=== PATIENT | female | born 1940 | race Caucasian/White ===

== ENCOUNTER 2018-12-26 19:05 | Emergency (ER) | payer MEDICARE, MEDICAID ==
[~2018-12-26] VITALS: Ht 157.5 cm; Wt 51.5 kg
[~2018-12-26 19:05] MED LIST: ALBU2.5V13 NEB; ALBU6.7H3 IH; CALC-2 PO; COL100C PO; DEC4T PO; FLUT1DIS4 PO; INHA1INH2; LEVO50TA8 PO; LORA10TA7 PO; LORA1TAB PO; METH500T PO; SPIIN INH
[2018-12-26 20:01] LABS: BASOPHILS # (AUTO) 0.1 X10'3 (0-0.2); BASOPHILS % (AUTO) 0.8 % (0-1); EOSINOPHILS # (AUTO) 0.1 X10'3 (0-0.9); EOSINOPHILS % (AUTO) 1.3 % (0-6); HEMOGLOBIN 13.2 g/dl (12.0-16.0); LYMPHOCYTES # (AUTO) 1.7 X10'3 (1.1-4.8); LYMPHOCYTES % (AUTO) 28.3 % (21-51); MEAN CORPUSCULAR HEMOGLOBIN 29.8 PG (27.0-31.0); MEAN CORPUSCULAR VOLUME 90.2 FL (78-98); MEAN PLATELET VOLUME 7.6 FL (7.4-10.4); MONOCYTES # (AUTO) 0.4 X10'3 (0-0.9); MONOCYTES % (AUTO) 5.7 % (2-12); NEUTROPHILS # (AUTO) 3.9 X10'3 (1.8-7.7); NEUTROPHILS % (AUTO) 63.9 % (42-75); PLATELET COUNT 251 X10'3 (140-440); RED BLOOD COUNT 4.43 X10'6 (4.20-5.60); RED CELL DISTRIBUTION WIDTH 15.9 % (11.5-14.5); WHITE BLOOD COUNT 6.2 X10'3 (4.5-11.0)
[2018-12-26 20:17] LABS: ALANINE AMINOTRANSFERASE 21 U/L (12-78); ALBUMIN 3.9 G/DL (3.4-5.0); ALBUMIN/GLOBULIN RATIO 1.1 (1.1-1.5); ALKALINE PHOSPHATASE 68 IU/L (46-116); ANION GAP 5 (8-16); ASPARTATE AMINO TRANSFERASE 12 U/L (10-37); BILIRUBIN,TOTAL 0.5 MG/DL (0.1-1.0); BLOOD UREA NITROGEN 14 MG/DL (7-18); BUN/CREATININE RATIO 22.2 (6.6-38.0); CHLORIDE 100 MMOL/L (99-107); CREATININE 0.63 MG/DL (0.40-0.90); GLUCOSE 93 MG/DL (70-104); POTASSIUM 3.4 MMOL/L (3.5-5.1); SODIUM 134 MMOL/L (135-145); TOTAL CARBON DIOXIDE 29.5 MMOL/L (24-32); TOTAL PROTEIN 7.6 G/DL (6.4-8.2); eGFR > 90 ML/MIN
[2018-12-26 20:21] LABS: PARTIAL THROMBOPLASTIN TIME 28 SECONDS (22-32)
[2018-12-26] MEDS ORDERED: LORazepam 1 MG tablet PO ONE (21:15)
[2018-12-26] MEDS ORDERED: dexamethasone 4mg tablet PO ONE (21:15)
[2018-12-26] MEDS ORDERED: ipratropium/albuterol 3ml nebule NEB ONE (21:35)
[2018-12-26] MEDS ORDERED: azithromycin 250mg tablet PO ONE (21:40)
[2018-12-26] MEDS ORDERED: AZIT-63 PO (21:42)
[2018-12-26] MEDS ORDERED: DEC4T PO (21:42)
[2018-12-26 22:22] VITALS: BP 108/59
== END 2018-12-26 23:01 | disposition home or self-care (01) ==
LOC: ER 19:06
DX: J44.1 Chronic obstructive pulmonary disease with (acute) exacerbation (principal); F41.9 Anxiety disorder, unspecified; G89.29 Other chronic pain; F17.210 Nicotine dependence, cigarettes, uncomplicated; Z90.49 Acquired absence of other specified parts of digestive tract; Z88.0 Allergy status to penicillin; Z88.1 Allergy status to other antibiotic agents; Z88.8 Allergy status to other drugs, medicaments and biological substances; Z79.899 Other long term (current) drug therapy
CPT/HCPCS: 36415; 71045; 80053; 84484; 85025; 85610; 85730; 93005; 94640; 94760; 99284; J8540

== ENCOUNTER 2019-04-09 12:30 | Inpatient (IN) | payer MEDICARE, MEDICAID ==
[~2019-04-09] VITALS: Ht 160 cm; Wt 52.4 kg
[2019-04-09 13:45] LABS: BASOPHILS % (AUTO) 0.5 % (0-1); EOSINOPHILS % (AUTO) 0.3 % (0-6); HEMATOCRIT 35.2 % (35.0-45.0); HEMOGLOBIN 11.8 g/dl (12.0-16.0); LYMPHOCYTES # (AUTO) 0.8 X10'3 (1.1-4.8); LYMPHOCYTES % (AUTO) 11.6 % (21-51); MEAN CORPUSCULAR HEMOGLOBIN 30.4 PG (27.0-31.0); MEAN CORPUSCULAR HGB CONC 33.4 g/dL (33.0-36.5); MEAN CORPUSCULAR VOLUME 90.8 FL (78-98); MEAN PLATELET VOLUME 8.6 FL (7.4-10.4); MONOCYTES # (AUTO) 0.7 X10'3 (0-0.9); MONOCYTES % (AUTO) 10.2 % (2-12); NEUTROPHILS # (AUTO) 5.6 X10'3 (1.8-7.7); NEUTROPHILS % (AUTO) 77.4 % (42-75); PLATELET COUNT 248 X10'3 (140-440); RED BLOOD COUNT 3.88 X10'6 (4.20-5.60); RED CELL DISTRIBUTION WIDTH 15.4 % (11.5-14.5); WHITE BLOOD COUNT 7.3 X10'3 (4.5-11.0)
[2019-04-09] MEDS ORDERED: ondansetron/PF 4mg/2ml inj IV ONE (13:55)
[2019-04-09] MEDS ORDERED: normal saline 1000ML IV soln IVB ONE (13:55)
[2019-04-09] MEDS ORDERED: morphine 2 MG/ML inj. syringe IV PRN (13:55)
[2019-04-09] MEDS ORDERED: metroNIDAZOLE-Flagyl 500mg/NS 100 ML IV ONE (13:55)
[2019-04-09] MEDS: levoFLOXACIN-Levaquin 750MG/D5 150 ML IV ONE ×2 (13:55→15:41)
[2019-04-09 14:01] LABS: ALANINE AMINOTRANSFERASE 73 U/L (12-78); ALBUMIN 2.6 G/DL (3.4-5.0); ALKALINE PHOSPHATASE 344 IU/L (46-116); ANION GAP 8 (8-16); BILIRUBIN,TOTAL 14.6 MG/DL (0.1-1.0); BLOOD UREA NITROGEN 13 MG/DL (7-18); CALCIUM 8.2 MG/DL (8.5-10.1); CHLORIDE 102 MMOL/L (99-107); LIPASE 225 U/L (73-393); SODIUM 136 MMOL/L (135-145); TOTAL CARBON DIOXIDE 25.7 MMOL/L (24-32)
[2019-04-09 14:07] LABS: ALBUMIN/GLOBULIN RATIO 0.7 (1.1-1.5); ASPARTATE AMINO TRANSFERASE 54 U/L (10-37); BUN/CREATININE RATIO 31.7 (6.6-38.0); CREATININE 0.41 MG/DL (0.40-0.90); GLUCOSE 119 MG/DL (70-104); TOTAL PROTEIN 6.3 G/DL (6.4-8.2); eGFR > 90 ML/MIN
[2019-04-09] MEDS ORDERED: iohexol 300mg/ml 100ml inj. ONE (15:35)
[2019-04-09] MEDS ORDERED: potassium CL 10mEq/100ml bag 100 ML IV PRN (15:50)
[2019-04-09] MEDS ORDERED: magnesium 4gm in 100ml NS 100 ML IV PRN (15:50)
[2019-04-09] MEDS ORDERED: acetaminophen 325mg tablet PO PRN ×2 (15:50)
[2019-04-09] MEDS ORDERED: potassium Cl 20 mEq SR tablet PO PRN ×2 (15:50)
[2019-04-09] MEDS ORDERED: ondansetron/PF 4mg/2ml inj IV PRN (15:50)
[2019-04-09] MEDS ORDERED: magnesium 2GM in 50ml NS 50 ML IV PRN (15:50)
[2019-04-09] MEDS ORDERED: normal saline 1000ml 1,000 ML IV ONE (15:50)
[2019-04-09] MEDS ORDERED: magnesium Cl slow-release 64mg tablet PO PRN (15:50)
[2019-04-09] MEDS ORDERED: magnesium hydroxide 30ml (MOM) UD suspension PO PRN (15:50)
--- NOTE | 2019-04-09 15:51 | NUR ---
PT TO CT
[2019-04-09] MEDS ORDERED: metroNIDAZOLE-Flagyl 500mg/NS 100 ML IV SCH (16:00)
[2019-04-09] MEDS ORDERED: FLUO15OI15 TOP (16:09)
[2019-04-09] MEDS ORDERED: BETA45OI2 TOP (16:18)
--- NOTE | 2019-04-09 16:34 | NUR ---
PT IS BACK FROM HER TEST AND THE LEVAQUIN HAS NOT BEEN GIVEN YET. ON ARRIVAL TO ROOM IT IS NOTICED THAT THE PHARMACIST HAS RECENTLY PUT LEVAQUIN ON HER ALLERGY LIST. TAKE LEVAQUINOUT OF THE ROOM AND DISPOSE IN BLUE SHARPS. NOTIFY DR GAMBLE WHO INSTRUCT TO NOTIFY THE HOSPITALIST AND LET THEM DECIDE WHAT ABX THEY WANT TO ADMINISTER.
--- NOTE | 2019-04-09 16:55 | NUR ---
PER DR CHAN, PUT IN ORDER FOR CEFTRAXIONE, DUE TO PT BEING ALLERGIC TO LEVAQUIN, HE SAID THAT SHE SHOULD BE OK, PT SHOULD TOLERATE WELL
[2019-04-09] MEDS: CefTRIAXone 2gm/D5W 50ml 50 ML IV SCH (17:20)
[2019-04-09 18:20] LABS: CLARITY,URINE CLEAR (Clear); COLOR,URINE YELLOW (Yellow); GLUCOSE, URINE NEGATIVE (Neg); KETONES,URINE NEGATIVE (Neg); LEUKOCYTE ESTERASE ,URINE NEGATIVE (Neg); NITRITES, URINE NEGATIVE (Neg); OCCULT BLOOD,URINE NEGATIVE (Neg); PH,URINE 5.5 (4.8-8.0); PROTEIN,URINE NEGATIVE (Neg); UROBILINOGEN,URINE 0.2 E.U/dL (0.2-1.0)
[2019-04-09 18:22] LABS: UA COLLECTION TYPE CLN CATCH MIDSTREAM
[2019-04-09] MEDS: potassium CL 10mEq/100ml bag 100 ML IV PRN ×3 (18:37→22:42)
[2019-04-09] MEDS ORDERED: LORazepam 1 MG tablet PO PRN (19:50)
[2019-04-09] MEDS ORDERED: loratadine 10mg tablet PO PRN (19:50)
[2019-04-09] MEDS ORDERED: docusate sod 100mg capsule PO PRN (19:50)
[2019-04-09 20:00] VITALS: BP 125/52
[2019-04-09] MEDS ORDERED: heparin, porcine 5000 units/ml vial SQ SCH (20:00)
[2019-04-09] MEDS ORDERED: ipratropium/albuterol 3ml nebule NEB PRN (20:20)
[2019-04-09] MEDS ORDERED: phytonadione inj. 5 MG in normal saline 100ml IV soln 99.5 ML IV ONE (20:20)
[2019-04-09] MEDS: LORazepam 1 MG tablet PO SCH (20:41)
[2019-04-09] MEDS ORDERED: ipratropium 0.5 MG/2.5ML nebule IH SCH (21:00)
[2019-04-09] MEDS: ipratropium/albuterol 3ml nebule NEB SCH (21:37)
[2019-04-10] VITALS (13 sets, daily range): BP systolic 113–155; BP diastolic 46–91
[2019-04-10] MEDS ORDERED: metroNIDAZOLE-Flagyl 500mg/NS 100 ML IV SCH
[2019-04-10] MEDS: metroNIDAZOLE-Flagyl 500mg/NS 100 ML IV SCH ×4 (00:31→23:17)
[2019-04-10] MEDS: potassium CL 10mEq/100ml bag 100 ML IV PRN ×5 (00:32→05:51)
[2019-04-10 05:24] LABS: BASOPHILS # (AUTO) 0.1 X10'3 (0-0.2); BASOPHILS % (AUTO) 0.8 % (0-1); EOSINOPHILS % (AUTO) 0.4 % (0-6); HEMATOCRIT 36.1 % (35.0-45.0); HEMOGLOBIN 12.1 g/dl (12.0-16.0); LYMPHOCYTES # (AUTO) 1.1 X10'3 (1.1-4.8); LYMPHOCYTES % (AUTO) 16.9 % (21-51); MEAN CORPUSCULAR HEMOGLOBIN 30.3 PG (27.0-31.0); MEAN CORPUSCULAR HGB CONC 33.5 g/dL (33.0-36.5); MEAN CORPUSCULAR VOLUME 90.5 FL (78-98); MEAN PLATELET VOLUME 8.9 FL (7.4-10.4); MONOCYTES # (AUTO) 0.6 X10'3 (0-0.9); MONOCYTES % (AUTO) 10.1 % (2-12); NEUTROPHILS # (AUTO) 4.6 X10'3 (1.8-7.7); NEUTROPHILS % (AUTO) 71.8 % (42-75); PLATELET COUNT 259 X10'3 (140-440); RED BLOOD COUNT 3.99 X10'6 (4.20-5.60); RED CELL DISTRIBUTION WIDTH 15.4 % (11.5-14.5); WHITE BLOOD COUNT 6.4 X10'3 (4.5-11.0)
[2019-04-10 05:30] LABS: PARTIAL THROMBOPLASTIN TIME 28 SECONDS (22-32)
[2019-04-10 05:50] LABS: ALANINE AMINOTRANSFERASE 68 U/L (12-78); ALBUMIN 2.3 G/DL (3.4-5.0); ALBUMIN/GLOBULIN RATIO 0.6 (1.1-1.5); ALKALINE PHOSPHATASE 320 IU/L (46-116); ANION GAP 11 (8-16); ASPARTATE AMINO TRANSFERASE 52 U/L (10-37); BILIRUBIN,TOTAL 15.5 MG/DL (0.1-1.0); BLOOD UREA NITROGEN 8 MG/DL (7-18); BUN/CREATININE RATIO 21.6 (6.6-38.0); CALCIUM 8.1 MG/DL (8.5-10.1); CHLORIDE 103 MMOL/L (99-107); CREATININE 0.37 MG/DL (0.40-0.90); GLUCOSE 96 MG/DL (70-104); LIPASE 253 U/L (73-393); MAGNESIUM 1.8 MG/DL (1.5-2.4); POTASSIUM 4.1 MMOL/L (3.5-5.1); SODIUM 138 MMOL/L (135-145); TOTAL CARBON DIOXIDE 23.7 MMOL/L (24-32); TOTAL PROTEIN 5.9 G/DL (6.4-8.2); eGFR > 90 ML/MIN
--- NOTE | 2019-04-10 06:25 | NUR ---
Problems reprioritized. Patient report given, questions answered & plan of care reviewed with JOSHUA Mancilla.
--- NOTE | 2019-04-10 06:56 | NUR ---
Patient in room [facility]. I have received report from JOSHUA Lazar and had the opportunity to ask questions and assume patient care.
[2019-04-10] MEDS: ipratropium/albuterol 3ml nebule NEB SCH ×3 (07:36→20:53)
[2019-04-10] MEDS: budesonide 0.5mg/2ml UD nebule IH SCH ×2 (07:36→20:53)
[2019-04-10] MEDS ORDERED: non-formulary drug (Tiotropium Bromide (SPIRIVA inhaler) 1 CAP) INH SCH (08:00)
[2019-04-10] MEDS ORDERED: levoFLOXACIN-Levaquin 500mg/D5 100 ML IV SCH (08:00)
[2019-04-10] MEDS ORDERED: CefTRIAXone 2gm/D5W 50ml 50 ML IV SCH (08:00)
[2019-04-10] MEDS: K and/or MAG REPLACEMENT MC SCH (08:00)
[2019-04-10] MEDS ORDERED: non-formulary drug (Levothyroxine Sodium 50 MCG) PO SCH (08:00)
[2019-04-10] MEDS: LORazepam 1 MG tablet PO SCH ×2 (08:52→19:27)
[2019-04-10] MEDS: levoTHYROXINE 25mcg tablet PO SCH (08:53)
[2019-04-10] MEDS: CefTRIAXone 2gm/D5W 50ml 50 ML IV SCH (08:54)
[2019-04-10] MEDS: normal saline 1000ml 1,000 ML IV SCH ×2 (09:42→19:25)
[2019-04-10] MEDS ORDERED: fentaNYL/PF 50MCG/1 ML 2ML syringe ONE (15:40)
[2019-04-10] MEDS ORDERED: diphenhydrAMINE 50 mg/ml inj ONE (15:40)
[2019-04-10] MEDS ORDERED: MIDAZolam 5mg/5ml vial ONE (15:40)
[2019-04-10] MEDS ORDERED: iohexol 300 MG/1 ML 50ml polymer ONE (15:41)
[2019-04-10] MEDS ORDERED: glucagon, human recombinant 1mg kit ONE (15:41)
[2019-04-10] MEDS ORDERED: LIDOcaine Viscous 15ml cup ONE (15:41)
--- NOTE | 2019-04-10 15:43 | NUR ---
Patient taken down to GI lab for ERCP via W/C.
--- NOTE | 2019-04-10 16:25 | NUR ---
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 Hx cirrhosis and currently AOx3. Pending ERCP. Pt hs no significant wt loss hx, no edema/wounds, normal strength and PO pending clear liquid diet. At this time pt does not meet minimum malnutrition criteria. Will continue to monitor. Addendum: 04/10/19 at [address] Amended: Links added.
--- NOTE | 2019-04-10 18:40 | NUR ---
Problems reprioritized. Patient report given, questions answered & plan of care reviewed with JOSHUA VILLANUEVA.
--- NOTE | 2019-04-10 18:50 | NUR ---
PT BACK TO UNIT, PLACED IN BED IN NO APPARENT DISTRESS. WILL CONTINUE TO MONITOR
[2019-04-10] MEDS: lactobacillus rhamnosus 10,000 MMU CELLS/CAPSULE PO SCH (19:27)
[2019-04-10] MEDS: morphine 4 MG/ML inj SYRINge IV PRN (20:23)
[2019-04-11] VITALS: BP 115/50
[2019-04-11] MEDS: morphine 2 MG/ML inj. syringe IV PRN ×3 (02:44→13:01)
[2019-04-11] MEDS: normal saline 1000ml 1,000 ML IV SCH ×2 (05:25→11:50)
[2019-04-11] MEDS: levoTHYROXINE 25mcg tablet PO SCH (06:03)
--- NOTE | 2019-04-11 06:20 | NUR ---
Patient in room [facility]. I have received report from Matthew LEWIS and had the opportunity to ask questions and assume patient care. Patient receiving morphine, will assess if effective.
--- NOTE | 2019-04-11 06:29 | NUR ---
Problems reprioritized. Patient report given, questions answered & plan of care reviewed with JOSHUA Romo.
[2019-04-11 06:31] LABS: BASOPHILS % (AUTO) 0.7 % (0-1); EOSINOPHILS % (AUTO) 0.4 % (0-6); HEMATOCRIT 31.2 % (35.0-45.0); HEMOGLOBIN 10.4 g/dl (12.0-16.0); LYMPHOCYTES # (AUTO) 0.7 X10'3 (1.1-4.8); LYMPHOCYTES % (AUTO) 14.3 % (21-51); MEAN CORPUSCULAR HEMOGLOBIN 30.5 PG (27.0-31.0); MEAN CORPUSCULAR HGB CONC 33.5 g/dL (33.0-36.5); MEAN CORPUSCULAR VOLUME 90.8 FL (78-98); MEAN PLATELET VOLUME 8.9 FL (7.4-10.4); MONOCYTES # (AUTO) 0.4 X10'3 (0-0.9); MONOCYTES % (AUTO) 8.2 % (2-12); NEUTROPHILS % (AUTO) 76.4 % (42-75); PLATELET COUNT 232 X10'3 (140-440); RED BLOOD COUNT 3.43 X10'6 (4.20-5.60); RED CELL DISTRIBUTION WIDTH 15.1 % (11.5-14.5); WHITE BLOOD COUNT 5.2 X10'3 (4.5-11.0)
[2019-04-11 06:42] LABS: PARTIAL THROMBOPLASTIN TIME 29 SECONDS (22-32)
[2019-04-11 06:52] LABS: ALANINE AMINOTRANSFERASE 57 U/L (12-78); ALKALINE PHOSPHATASE 262 IU/L (46-116); ANION GAP 7 (8-16); ASPARTATE AMINO TRANSFERASE 41 U/L (10-37); BILIRUBIN,TOTAL 12.3 MG/DL (0.1-1.0); BLOOD UREA NITROGEN 7 MG/DL (7-18); BUN/CREATININE RATIO 19.4 (6.6-38.0); CALCIUM 7.9 MG/DL (8.5-10.1); CHLORIDE 103 MMOL/L (99-107); CREATININE 0.36 MG/DL (0.40-0.90); GLUCOSE 88 MG/DL (70-104); LIPASE 168 U/L (73-393); MAGNESIUM 1.7 MG/DL (1.5-2.4); SODIUM 137 MMOL/L (135-145); TOTAL CARBON DIOXIDE 26.7 MMOL/L (24-32); eGFR > 90 ML/MIN
[2019-04-11 07:00] VITALS: BP 120/41
[2019-04-11 07:03] LABS: ALBUMIN/GLOBULIN RATIO 0.6 (1.1-1.5); TOTAL PROTEIN 5.3 G/DL (6.4-8.2)
[2019-04-11 07:06] LABS: POTASSIUM 2.9 MMOL/L (3.5-5.1)
[2019-04-11] MEDS: K and/or MAG REPLACEMENT MC SCH (08:00)
[2019-04-11] MEDS: lactobacillus rhamnosus 10,000 MMU CELLS/CAPSULE PO SCH ×2 (08:04→19:38)
[2019-04-11] MEDS: LORazepam 1 MG tablet PO SCH ×2 (08:05→19:38)
[2019-04-11] MEDS: ipratropium/albuterol 3ml nebule NEB SCH ×3 (08:05→20:49)
[2019-04-11] MEDS: budesonide 0.5mg/2ml UD nebule IH SCH ×2 (08:05→20:49)
[2019-04-11] MEDS: metroNIDAZOLE-Flagyl 500mg/NS 100 ML IV SCH (08:06)
[2019-04-11] MEDS ORDERED: magnesium 2GM in 50ml NS 50 ML IV ONE (08:25)
--- NOTE | 2019-04-11 08:28 | NUR ---
son, Donnell called and asked for update from yesterday's ERCP. Requested that he call back after 10 am due to report not up and must discuss with MD giving results to family. Will continue to monitor.
[2019-04-11] MEDS ORDERED: POTASSIUM BICARB 20meq eff tab 20 MEQ TABLET.EFF PO PRN (08:33)
--- NOTE | 2019-04-11 09:23 | NUR ---
Merry, sister called, wanting information about patient. Educated on imprortance of physician providing results. Continued to request information.
[2019-04-11 11:00] VITALS: BP 114/45
[2019-04-11] MEDS: POTASSIUM BICARB 20meq eff tab 20 MEQ TABLET.EFF PO PRN ×2 (11:54→17:21)
--- NOTE | 2019-04-11 12:49 | NUR ---
Tesha at [facility] will send pt's ERCP and CT of Abdomen reports along w/ pt's facesheet to Dr. Isrrael Salinas (GI), per Dr. Hagen's request.
--- NOTE | 2019-04-11 13:10 | NUR ---
Patient's son, Donnell, will be family contact [phone]. Dr. Hagen provided number to Donnell. States he will call to notify.
[2019-04-11] MEDS: metroNIDAZOLE 500mg tablet PO SCH ×2 (17:20→23:56)
--- NOTE | 2019-04-11 17:41 | NUR ---
Received call from sister Merry who states that the son, Donnell stated in a text that the patient's doctor stated something about a gallbladder which the patient had removed. Stated I will make a note.
--- NOTE | 2019-04-11 18:49 | NUR ---
Patient in room [facility]. I have received report from Clarissa LEWIS and had the opportunity to ask questions and assume patient care. Patient is resting and shows no sign of distress.
--- NOTE | 2019-04-11 18:53 | NUR ---
Problems reprioritized. Patient report given, questions answered & plan of care reviewed with Prudence RN.
[2019-04-11 19:00] VITALS: BP 134/62
[2019-04-11] MEDS: triamcinolone acetonide 0.5% cream 15gm TP SCH (19:39)
[2019-04-11] MEDS: morphine 4 MG/ML inj SYRINge IV PRN (23:57)
[2019-04-12] VITALS: BP 122/66
[2019-04-12] MEDS: normal saline 1000ml 1,000 ML IV SCH ×3 (00:04→19:49)
--- NOTE | 2019-04-12 06:44 | NUR ---
Patient in room [facility] 348. I have received report from Soo LEWIS and had the opportunity to ask questions and assume patient care.
[2019-04-12 06:45] LABS: PARTIAL THROMBOPLASTIN TIME 29 SECONDS (22-32)
[2019-04-12 06:46] LABS: BASOPHILS % (AUTO) 0.4 % (0-1); EOSINOPHILS # (AUTO) 0.1 X10'3 (0-0.9); EOSINOPHILS % (AUTO) 1.1 % (0-6); HEMATOCRIT 29.4 % (35.0-45.0); HEMOGLOBIN 10.1 g/dl (12.0-16.0); LYMPHOCYTES # (AUTO) 0.7 X10'3 (1.1-4.8); LYMPHOCYTES % (AUTO) 14.7 % (21-51); MEAN CORPUSCULAR HEMOGLOBIN 30.9 PG (27.0-31.0); MEAN CORPUSCULAR HGB CONC 34.2 g/dL (33.0-36.5); MEAN CORPUSCULAR VOLUME 90.2 FL (78-98); MEAN PLATELET VOLUME 8.8 FL (7.4-10.4); MONOCYTES # (AUTO) 0.4 X10'3 (0-0.9); MONOCYTES % (AUTO) 8.5 % (2-12); NEUTROPHILS # (AUTO) 3.7 X10'3 (1.8-7.7); NEUTROPHILS % (AUTO) 75.3 % (42-75); PLATELET COUNT 246 X10'3 (140-440); RED BLOOD COUNT 3.26 X10'6 (4.20-5.60); RED CELL DISTRIBUTION WIDTH 15.1 % (11.5-14.5)
[2019-04-12 07:00] VITALS: BP 100/43
[2019-04-12 07:26] LABS: ALANINE AMINOTRANSFERASE 44 U/L (12-78); ALBUMIN 1.9 G/DL (3.4-5.0); ALKALINE PHOSPHATASE 220 IU/L (46-116); ANION GAP 6 (8-16); ASPARTATE AMINO TRANSFERASE 25 U/L (10-37); BILIRUBIN,TOTAL 6.4 MG/DL (0.1-1.0); BLOOD UREA NITROGEN 5 MG/DL (7-18); BUN/CREATININE RATIO 8.3 (6.6-38.0); CHLORIDE 101 MMOL/L (99-107); GLUCOSE 164 MG/DL (70-104); LIPASE 92 U/L (73-393); MAGNESIUM 2.1 MG/DL (1.5-2.4); POTASSIUM 3.5 MMOL/L (3.5-5.1); SODIUM 133 MMOL/L (135-145); TOTAL CARBON DIOXIDE 25.9 MMOL/L (24-32); eGFR > 90 ML/MIN
[2019-04-12 07:32] LABS: CALCIUM 7.5 MG/DL (8.5-10.1)
[2019-04-12 07:34] LABS: ALBUMIN/GLOBULIN RATIO 0.6 (1.1-1.5); TOTAL PROTEIN 5.2 G/DL (6.4-8.2)
[2019-04-12] MEDS: levoTHYROXINE 25mcg tablet PO SCH (07:57)
[2019-04-12] MEDS: lactobacillus rhamnosus 10,000 MMU CELLS/CAPSULE PO SCH ×2 (07:57→19:47)
[2019-04-12] MEDS: metroNIDAZOLE 500mg tablet PO SCH ×2 (07:57→15:34)
[2019-04-12] MEDS: LORazepam 1 MG tablet PO SCH ×2 (07:58→19:48)
[2019-04-12] MEDS: triamcinolone acetonide 0.5% cream 15gm TP SCH ×2 (07:58→19:47)
[2019-04-12] MEDS: K and/or MAG REPLACEMENT MC SCH (08:00)
[2019-04-12] MEDS: ipratropium/albuterol 3ml nebule NEB SCH ×3 (09:32→21:16)
[2019-04-12] MEDS: budesonide 0.5mg/2ml UD nebule IH SCH ×2 (09:32→21:16)
[2019-04-12] MEDS: morphine 2 MG/ML inj. syringe IV PRN ×2 (10:11→14:19)
[2019-04-12 12:16] VITALS: BP 100/55
--- NOTE | 2019-04-12 18:29 | NUR ---
Problems reprioritized. Patient report given, questions answered & plan of care reviewed with Prudence RN.
--- NOTE | 2019-04-12 18:47 | NUR ---
Patient in room [facility] 348. I have received report from Becca LEWIS and had the opportunity to ask questions and assume patient care. Patient is hhaving dinner and has cough.
[2019-04-12 19:00] VITALS: BP 115/55
[2019-04-13] VITALS: BP 118/63
[2019-04-13] MEDS: metroNIDAZOLE 500mg tablet PO SCH ×4 (00:30→23:34)
[2019-04-13] MEDS: normal saline 1000ml 1,000 ML IV SCH ×2 (04:57→17:25)
--- NOTE | 2019-04-13 06:19 | NUR ---
Patient in room [facility] 348. I have received report from Soo LEWIS and had the opportunity to ask questions and assume patient care.
[2019-04-13 06:20] LABS: BASOPHILS % (AUTO) 0.6 % (0-1); EOSINOPHILS # (AUTO) 0.1 X10'3 (0-0.9); EOSINOPHILS % (AUTO) 1.9 % (0-6); HEMATOCRIT 29.1 % (35.0-45.0); HEMOGLOBIN 9.9 g/dl (12.0-16.0); LYMPHOCYTES % (AUTO) 20.9 % (21-51); MEAN CORPUSCULAR HEMOGLOBIN 30.8 PG (27.0-31.0); MEAN CORPUSCULAR VOLUME 90.5 FL (78-98); MEAN PLATELET VOLUME 8.5 FL (7.4-10.4); MONOCYTES # (AUTO) 0.5 X10'3 (0-0.9); MONOCYTES % (AUTO) 10.5 % (2-12); NEUTROPHILS # (AUTO) 3.1 X10'3 (1.8-7.7); NEUTROPHILS % (AUTO) 66.1 % (42-75); PLATELET COUNT 259 X10'3 (140-440); RED BLOOD COUNT 3.22 X10'6 (4.20-5.60); RED CELL DISTRIBUTION WIDTH 14.8 % (11.5-14.5); WHITE BLOOD COUNT 4.6 X10'3 (4.5-11.0)
--- NOTE | 2019-04-13 06:24 | NUR ---
Problems reprioritized. Patient report given, questions answered & plan of care reviewed with Kelsi LEWIS and Becca LEWIS. Patient is feeling much better. She rested well last night.
[2019-04-13 06:55] LABS: ALANINE AMINOTRANSFERASE 41 U/L (12-78); ALKALINE PHOSPHATASE 194 IU/L (46-116); ANION GAP 7 (8-16); ASPARTATE AMINO TRANSFERASE 28 U/L (10-37); BILIRUBIN,TOTAL 4.5 MG/DL (0.1-1.0); BLOOD UREA NITROGEN 4 MG/DL (7-18); CALCIUM 7.9 MG/DL (8.5-10.1); CHLORIDE 104 MMOL/L (99-107); GLUCOSE 89 MG/DL (70-104); MAGNESIUM 2.1 MG/DL (1.5-2.4); POTASSIUM 3.7 MMOL/L (3.5-5.1); SODIUM 139 MMOL/L (135-145); TOTAL CARBON DIOXIDE 28.2 MMOL/L (24-32); eGFR > 90 ML/MIN
[2019-04-13 07:00] VITALS: BP 103/43
[2019-04-13] MEDS: levoTHYROXINE 25mcg tablet PO SCH (07:09)
[2019-04-13] MEDS: LORazepam 1 MG tablet PO SCH ×2 (07:09→19:01)
[2019-04-13] MEDS: lactobacillus rhamnosus 10,000 MMU CELLS/CAPSULE PO SCH ×2 (07:09→19:40)
[2019-04-13] MEDS: triamcinolone acetonide 0.5% cream 15gm TP SCH ×2 (07:10→19:41)
[2019-04-13 07:21] LABS: ALBUMIN/GLOBULIN RATIO 0.6 (1.1-1.5); TOTAL PROTEIN 5.3 G/DL (6.4-8.2)
[2019-04-13] MEDS: K and/or MAG REPLACEMENT MC SCH (08:00)
[2019-04-13] MEDS: budesonide 0.5mg/2ml UD nebule IH SCH ×2 (09:40→20:45)
[2019-04-13] MEDS: ipratropium/albuterol 3ml nebule NEB SCH ×3 (09:40→20:45)
[2019-04-13 11:00] VITALS: BP 123/46
[2019-04-13] MEDS: mag hydrox/Alum hydrox/simeth 30ml oral suspension PO PRN ×2 (13:29→23:35)
--- NOTE | 2019-04-13 15:02 | NUR ---
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 Advanced to heart healthy diet PO 75-100% meals post-op meeting needs. LBM 04/09; pt has colace PRN HS and agrees to change to BID for additional bowel care post-op. Will continue to monitor. Rec: 1. continue heart healthy diet 2. routine bowel care 3. wt per rx Addendum: 04/13/19 at [address] Amended: Links added. 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 PO 75-100% heart healthy meals meeting needs. agrees to change colace to BID fro PRN given LBM 04/09. Will continue to monitor. Rec: 1. continue heart healthy diet 2. routine bowel care 3. wt per rx
--- NOTE | 2019-04-13 18:27 | NUR ---
Problems reprioritized. Patient report given, questions answered & plan of care reviewed with Iris LEWIS.
--- NOTE | 2019-04-13 18:30 | NUR ---
Received report from JOSHUA Wheeler and assumed plan of care.
--- NOTE | 2019-04-13 18:30 | NUR ---
Patient in room [facility]. I have received report from MITCHEL and had the opportunity to ask questions and assume patient care. ASSUMED CARE OF PT WITH RN STUDENT EDIL Elizabeth
[2019-04-13 19:00] VITALS: BP 153/64
[2019-04-13] MEDS ORDERED: ibuprofen tablet 400 MG TABLET PO PRN (19:10)
[2019-04-13] MEDS: docusate sod 100mg capsule PO SCH (19:40)
[2019-04-14] VITALS: BP 106/50
--- NOTE | 2019-04-14 00:20 | NUR ---
Patient awoke choking on cough secretions; suction is on continuos.
--- NOTE | 2019-04-14 01:54 | NUR ---
Pt continues to cough up moderate amounts of phlegm. Encouraged fluids and DB&C. Patient is using suction as needed.
--- NOTE | 2019-04-14 04:57 | NUR ---
Student documentation: I have reviewed and agree with all interventions, assessments performed and documented by EDIL. Student Medication Administration: For this medication-pass time frame, all medication were reviewed, dispensed, administered and documented per hospital policy by EDIL.
[2019-04-14 06:01] LABS: BASOPHILS % (AUTO) 0.7 % (0-1); EOSINOPHILS # (AUTO) 0.1 X10'3 (0-0.9); EOSINOPHILS % (AUTO) 3.1 % (0-6); HEMATOCRIT 30.6 % (35.0-45.0); HEMOGLOBIN 10.1 g/dl (12.0-16.0); LYMPHOCYTES # (AUTO) 0.9 X10'3 (1.1-4.8); LYMPHOCYTES % (AUTO) 20.1 % (21-51); MEAN CORPUSCULAR HEMOGLOBIN 30.3 PG (27.0-31.0); MEAN CORPUSCULAR HGB CONC 33.1 g/dL (33.0-36.5); MEAN CORPUSCULAR VOLUME 91.8 FL (78-98); MEAN PLATELET VOLUME 8.3 FL (7.4-10.4); MONOCYTES # (AUTO) 0.5 X10'3 (0-0.9); MONOCYTES % (AUTO) 10.9 % (2-12); NEUTROPHILS # (AUTO) 2.8 X10'3 (1.8-7.7); NEUTROPHILS % (AUTO) 65.2 % (42-75); PLATELET COUNT 266 X10'3 (140-440); RED BLOOD COUNT 3.34 X10'6 (4.20-5.60); RED CELL DISTRIBUTION WIDTH 14.9 % (11.5-14.5); WHITE BLOOD COUNT 4.4 X10'3 (4.5-11.0)
[2019-04-14 06:19] LABS: ALANINE AMINOTRANSFERASE 49 U/L (12-78); ALBUMIN 2.1 G/DL (3.4-5.0); ALKALINE PHOSPHATASE 213 IU/L (46-116); ANION GAP 5 (8-16); ASPARTATE AMINO TRANSFERASE 42 U/L (10-37); BILIRUBIN,TOTAL 3.8 MG/DL (0.1-1.0); BLOOD UREA NITROGEN 3 MG/DL (7-18); BUN/CREATININE RATIO 5.3 (6.6-38.0); CHLORIDE 105 MMOL/L (99-107); CREATININE 0.57 MG/DL (0.40-0.90); GLUCOSE 104 MG/DL (70-104); MAGNESIUM 2.1 MG/DL (1.5-2.4); POTASSIUM 3.7 MMOL/L (3.5-5.1); SODIUM 139 MMOL/L (135-145); TOTAL CARBON DIOXIDE 28.7 MMOL/L (24-32); eGFR > 90 ML/MIN
[2019-04-14 06:22] LABS: ALBUMIN/GLOBULIN RATIO 0.6 (1.1-1.5); TOTAL PROTEIN 5.6 G/DL (6.4-8.2)
[2019-04-14 06:30] VITALS: BP 115/50
--- NOTE | 2019-04-14 06:30 | NUR ---
Patient in room [facility]. I have received report from JOSHUA Agudelo and had the opportunity to ask questions and assume patient care.
--- NOTE | 2019-04-14 06:44 | NUR ---
Problems reprioritized. Patient report given, questions answered & plan of care reviewed with PETER.
[2019-04-14] MEDS: K and/or MAG REPLACEMENT MC SCH (06:58)
[2019-04-14] MEDS ORDERED: pantoprazole 40mg Tablet.DR PO SCH (07:30)
[2019-04-14] MEDS: levoTHYROXINE 25mcg tablet PO SCH (07:49)
[2019-04-14] MEDS: metroNIDAZOLE 500mg tablet PO SCH ×2 (07:49→16:28)
[2019-04-14] MEDS: LORazepam 1 MG tablet PO SCH ×2 (07:49→16:28)
[2019-04-14] MEDS: docusate sod 100mg capsule PO SCH (07:50)
[2019-04-14] MEDS: triamcinolone acetonide 0.5% cream 15gm TP SCH (07:50)
[2019-04-14] MEDS: lactobacillus rhamnosus 10,000 MMU CELLS/CAPSULE PO SCH (07:50)
[2019-04-14] MEDS: ipratropium/albuterol 3ml nebule NEB SCH ×2 (09:16→16:05)
[2019-04-14] MEDS: budesonide 0.5mg/2ml UD nebule IH SCH (09:16)
[2019-04-14] MEDS ORDERED: LACT1CAP26 PO (10:01)
[2019-04-14] MEDS ORDERED: PANT40TA4 PO (10:01)
[2019-04-14] MEDS ORDERED: METR500T PO (10:01)
[2019-04-14] MEDS ORDERED: CEFD300C3 PO (10:01)
[2019-04-14 11:00] VITALS: BP 139/57
[2019-04-14] MEDS ORDERED: bisacodyl 10mg suppository rectal RC STA (13:22)
--- NOTE | 2019-04-14 17:15 | NUR ---
DC inst provided to pt. IV DC'd, tip intact. All belongings sent w/pt. WC to front lobby.
== END 2019-04-14 17:27 | disposition home health service (06) | DRG 374 ==
LOC: ER 12:31 → SUR 3N 19:40
PROVIDERS: ADMIT Hospitalist; ATTEND Hospitalist
PROC: BW211ZZ Computerized Tomography (CT Scan) of Abdomen and Pelvis using Low Osmolar Contrast (ICD-10-PCS; principal; 2019-04-09)
PROC: 0F798DZ Dilation of Common Bile Duct with Intraluminal Device, Via Natural or Artificial Opening Endoscopic (ICD-10-PCS; 2019-04-10)
PROC: 0F7D8DZ Dilation of Pancreatic Duct with Intraluminal Device, Via Natural or Artificial Opening Endoscopic (ICD-10-PCS; 2019-04-10)
PROC: BF111ZZ Fluoroscopy of Biliary and Pancreatic Ducts using Low Osmolar Contrast (ICD-10-PCS; 2019-04-10)
PROC: 0FD98ZX Extraction of Common Bile Duct, Via Natural or Artificial Opening Endoscopic, Diagnostic (ICD-10-PCS; 2019-04-10)
DX: D37.8 Neoplasm of uncertain behavior of other specified digestive organs (principal); K83.1 Obstruction of bile duct; E43 Unspecified severe protein-calorie malnutrition; E72.20 Disorder of urea cycle metabolism, unspecified; D68.9 Coagulation defect, unspecified; K83.09 Other cholangitis; K83.8 Other specified diseases of biliary tract; E03.9 Hypothyroidism, unspecified; J44.9 Chronic obstructive pulmonary disease, unspecified; F41.9 Anxiety disorder, unspecified; G89.29 Other chronic pain; M54.9 Dorsalgia, unspecified; K59.00 Constipation, unspecified; E87.6 Hypokalemia; Z88.0 Allergy status to penicillin; Z88.1 Allergy status to other antibiotic agents; Z88.8 Allergy status to other drugs, medicaments and biological substances; Z88.7 Allergy status to serum and vaccine; Z79.890 Hormone replacement therapy; Z79.899 Other long term (current) drug therapy; Z87.440 Personal history of urinary (tract) infections; Z87.891 Personal history of nicotine dependence; Z90.49 Acquired absence of other specified parts of digestive tract
CPT/HCPCS: 36415; 43261; 43262; 43274; 71045; 74177; 76700; 76937; 80053; 81003; 82140; 83605; 83690; 83735; 84132; 84443; 85025; 85610; 85730; 86301; 87040; 87070; 87081; 88108; 88305; 94640; 94760; 96365; 96367; 96375; 99152; 99153; 99285; A4620; C1769; C2617; G0378; J0696; J1200; J1610; J1644; J1956; J2250; J2270; J2405; J3010; J3430; J3475; J3480; J3490; J7030; J7040; J7626; Q9967

== ENCOUNTER 2019-05-29 08:31 | Day surgery (SDC) | payer MEDICARE, MEDICAID ==
[~2019-05-29 08:31] MED LIST changes: +BETA45OI2 TOP; -CALC-2 PO; -DEC4T PO; -INHA1INH2; +LACT1CAP26 PO; -METH500T PO; +METR500T PO; +PANT40TA4 PO
[2019-05-29 08:55] VITALS: BP 105/57
[2019-05-29] MEDS ORDERED: fentaNYL/PF 50MCG/1 ML 2ML syringe IV PRN (10:20)
[2019-05-29] MEDS ORDERED: LIDOcaine 1% (10mg/ml) 2ml vial SQ ONE (10:20)
[2019-05-29] MEDS ORDERED: heparin sodium, porcine/PF 100unit/ml 5ML syringe ONE (10:20)
[2019-05-29] MEDS ORDERED: midazolam 2 mg/2 ml injection IV PRN (10:20)
[2019-05-29] MEDS ORDERED: heparin sodium, porcine/PF 100unit/ml 5ML syringe ICATH ONE (10:20)
[2019-05-29] MEDS ORDERED: midazolam 2 mg/2 ml injection ONE (10:20)
[2019-05-29] MEDS ORDERED: LIDOcaine 1%/PF 5ML 10 MG/ML VIAL ONE (10:20)
[2019-05-29] MEDS ORDERED: fentaNYL/PF 50MCG/1 ML 2ML syringe ONE (10:21)
[2019-05-29] MEDS ORDERED: LORazepam 1 MG tablet PO ONE (11:00)
[2019-05-29 11:04] VITALS: BP 103/58
[2019-05-29 11:30] VITALS: BP 103/72
[2019-05-29 11:58] VITALS: BP 117/48
[2019-05-29 12:03] VITALS: BP 118/52
[2019-05-29 12:08] VITALS: BP 116/48
== END 2019-05-29 12:20 | disposition home or self-care (01) ==
LOC: SSTAY O 08:31
PROVIDERS: ATTEND Radiology Vascular & Interventional Radiology
DX: C25.9 Malignant neoplasm of pancreas, unspecified (principal); J44.9 Chronic obstructive pulmonary disease, unspecified; F41.9 Anxiety disorder, unspecified; K21.9 Gastro-esophageal reflux disease without esophagitis; Z87.01 Personal history of pneumonia (recurrent); Z87.440 Personal history of urinary (tract) infections; Z90.49 Acquired absence of other specified parts of digestive tract; Z98.890 Other specified postprocedural states; Z87.891 Personal history of nicotine dependence; Z88.0 Allergy status to penicillin; Z88.1 Allergy status to other antibiotic agents; Z88.8 Allergy status to other drugs, medicaments and biological substances; Z88.7 Allergy status to serum and vaccine; Z79.899 Other long term (current) drug therapy; Z80.3 Family history of malignant neoplasm of breast
CPT/HCPCS: 36561; 76937; 77001; 99152; 99153; C1769; C1788; C1894; J1642; J2250; J3010

== ENCOUNTER 2019-06-17 09:57 | Day surgery (SDC) | payer MEDICARE, MEDICAID ==
[~2019-06-17 09:57] MED LIST changes: -LACT1CAP26 PO; -METR500T PO
== END 2019-06-17 10:30 | disposition home or self-care (01) ==
LOC: GI LAB 09:57
PROVIDERS: ATTEND Internal Medicine Gastroenterology
DX: Z46.59 Encounter for fitting and adjustment of other gastrointestinal appliance and device (principal); Z53.8 Procedure and treatment not carried out for other reasons

== ENCOUNTER 2019-06-22 21:19 | Inpatient (IN) | payer MEDICARE, MEDICAID ==
[~2019-06-22] VITALS: Ht 157.5 cm; Wt 51.8 kg
[2019-06-22] MEDS ORDERED: normal saline 1000ML IV soln IV ONE (21:35)
--- NOTE | 2019-06-22 22:09 | NUR ---
Placed pt on bedpan with no success in producing void. Pt declines catheter at this time.
[2019-06-22 22:13] LABS: BASOPHILS % (AUTO) 0.1 % (0-1); EOSINOPHILS % (AUTO) 0.1 % (0-6); HEMATOCRIT 29.9 % (35.0-45.0); LYMPHOCYTES # (AUTO) 0.5 X10'3 (1.1-4.8); LYMPHOCYTES % (AUTO) 8.9 % (21-51); MEAN CORPUSCULAR HGB CONC 33.5 g/dL (33.0-36.5); MEAN CORPUSCULAR VOLUME 89.6 FL (78-98); MEAN PLATELET VOLUME 8.2 FL (7.4-10.4); MONOCYTES % (AUTO) 0.4 % (2-12); NEUTROPHILS % (AUTO) 90.5 % (42-75); PLATELET COUNT 90 X10'3 (140-440); RED BLOOD COUNT 3.34 X10'6 (4.20-5.60); RED CELL DISTRIBUTION WIDTH 14.6 % (11.5-14.5); WHITE BLOOD COUNT 5.5 X10'3 (4.5-11.0)
[2019-06-22 22:18] LABS: PARTIAL THROMBOPLASTIN TIME 28 SECONDS (22-32)
[2019-06-22 22:21] LABS: ALANINE AMINOTRANSFERASE 16 U/L (12-78); ALBUMIN 3.1 G/DL (3.4-5.0); ALBUMIN/GLOBULIN RATIO 0.9 (1.1-1.5); ALKALINE PHOSPHATASE 81 IU/L (46-116); ANION GAP 7 (8-16); ASPARTATE AMINO TRANSFERASE 11 U/L (10-37); BLOOD UREA NITROGEN 12 MG/DL (7-18); BUN/CREATININE RATIO 16.2 (6.6-38.0); CHLORIDE 99 MMOL/L (99-107); CREATININE 0.74 MG/DL (0.40-0.90); GLUCOSE 116 MG/DL (70-104); LIPASE 64 U/L (73-393); MAGNESIUM 1.9 MG/DL (1.5-2.4); POTASSIUM 3.2 MMOL/L (3.5-5.1); SODIUM 133 MMOL/L (135-145); TOTAL CARBON DIOXIDE 27.2 MMOL/L (24-32); TOTAL PROTEIN 6.5 G/DL (6.4-8.2); eGFR 76 ML/MIN
[2019-06-22] MEDS ORDERED: PROC10TA10 PO (22:25)
[2019-06-22] MEDS ORDERED: ONDA8TAB13 PO (22:25)
[2019-06-22 23:06] LABS: CLARITY,URINE SLIGHTLY CLOUDY (Clear); COLOR,URINE YELLOW (Yellow); GLUCOSE, URINE NEGATIVE (Neg); KETONES,URINE NEGATIVE (Neg); LEUKOCYTE ESTERASE ,URINE SMALL (Neg); NITRITES, URINE NEGATIVE (Neg); OCCULT BLOOD,URINE NEGATIVE (Neg); PROTEIN,URINE NEGATIVE (Neg); UA COLLECTION TYPE CLN CATCH MIDSTREAM
[2019-06-22 23:08] LABS: BACTERIA,URINE FEW /HPF (Neg); MUCUS STRANDS MANY /LPF (Neg); RBC,URINE NONE SEEN /HPF (0-2); SQUAMOUS EPITHELIAL CELL,UR MODERATE /LPF (FEW)
[2019-06-22] MEDS: diatr meglu/diatrizoate 30ml oral sol.-(3 dose) bottle PO SCH (23:26)
--- NOTE | 2019-06-22 23:32 | NUR ---
SISTER DAVID'S PHONE NUMBER [phone]
--- NOTE | 2019-06-22 23:33 | NUR ---
MD Moore notified of 100.2 oral temp and red swelling to R foot.
[2019-06-23] VITALS (14 sets, daily range): BP systolic 97–164; BP diastolic 42–103
[2019-06-23] MEDS: diatr meglu/diatrizoate 30ml oral sol.-(3 dose) bottle PO SCH ×2 (00:09→01:53)
[2019-06-23] MEDS ORDERED: iohexol 300mg/ml 100ml inj. ONE (00:45)
[2019-06-23] MEDS ORDERED: magnesium 2GM in 50ml NS 50 ML IV ONE (01:00)
[2019-06-23] MEDS ORDERED: potassium Cl 10 mEq/100mL bag IV ONE (01:00)
[2019-06-23] MEDS ORDERED: metroNIDAZOLE-Flagyl 500mg/NS 100 ML IV ONE (06:00)
[2019-06-23] MEDS ORDERED: ciprofloxacin lact 400MG/200ML 200 ML IV ONE (06:02)
--- NOTE | 2019-06-23 07:00 | NUR ---
Assisted pt to bedside commode. Voided approx. 550mL of urine. Assisted pt back into bed, and gave warm blankets.
[2019-06-23] MEDS ORDERED: metoprolol tartrate 1mg/ml inj IV SCH (07:40)
[2019-06-23] MEDS ORDERED: potassium Cl 20 mEq SR tablet PO PRN (07:45)
[2019-06-23] MEDS ORDERED: magnesium 2GM in 50ml NS 50 ML IV PRN (07:45)
[2019-06-23] MEDS ORDERED: ondansetron/PF 4mg/2ml inj IV PRN (07:45)
[2019-06-23] MEDS ORDERED: acetaminophen 650mg rectal suppository RC PRN (07:45)
[2019-06-23] MEDS ORDERED: magnesium 4gm in 100ml NS 100 ML IV PRN (07:45)
[2019-06-23] MEDS ORDERED: magnesium Cl slow-release 64mg tablet PO PRN (07:45)
[2019-06-23] MEDS ORDERED: morphine 2 MG/ML inj. syringe IV PRN ×2 (07:45)
[2019-06-23] MEDS ORDERED: potassium CL 10mEq/100ml bag 100 ML IV PRN ×2 (07:45)
[2019-06-23] MEDS: K and/or MAG REPLACEMENT MC SCH (08:00)
[2019-06-23] MEDS ORDERED: LORazepam 2 mg/ml vial IV PRN (08:05)
[2019-06-23] MEDS: ipratropium/albuterol 3ml nebule NEB PRN (08:23)
[2019-06-23] MEDS: normal saline 1000ml 1,000 ML IV SCH ×2 (11:01→19:11)
--- NOTE | 2019-06-23 14:25 | NUR ---
Patient in room [facility]. I have received report from Jojo (Instructor) and had the opportunity to ask questions and assume patient care.
[2019-06-23] MEDS ORDERED: fentaNYL/PF 50MCG/1 ML 2ML syringe ONE (15:03)
[2019-06-23] MEDS ORDERED: MIDAZolam 5mg/5ml vial ONE (15:04)
[2019-06-23] MEDS ORDERED: glucagon, human recombinant 1mg kit ONE (15:04)
[2019-06-23] MEDS ORDERED: levoFLOXACIN-Levaquin 500mg/D5 100 ML IV ONE (15:04)
[2019-06-23] MEDS ORDERED: LIDOcaine Viscous 15ml cup ONE (15:04)
[2019-06-23] MEDS ORDERED: iohexol 300 MG/1 ML 50ml polymer ONE (15:04)
--- NOTE | 2019-06-23 15:15 | NUR ---
Patient taken down for ERCP. IV was pulled out at time of transport.
[2019-06-23] MEDS ORDERED: loratadine 10mg tablet PO PRN (15:25)
[2019-06-23] MEDS ORDERED: docusate sod 100mg capsule PO PRN (15:25)
[2019-06-23] MEDS ORDERED: non-formulary drug (Ondansetron (Ondansetron Odt) 1 TAB) PO SCH (16:00)
--- NOTE | 2019-06-23 18:06 | NUR ---
patient just returned to floor from procedure, report of procedure was given at this time.
--- NOTE | 2019-06-23 18:58 | NUR ---
Problems reprioritized. Patient report given, questions answered & plan of care reviewed with Ana Amaya RN.
[2019-06-23] MEDS: metroNIDAZOLE-Flagyl 500mg/NS 100 ML IV SCH (19:11)
[2019-06-23] MEDS: LORazepam 1 MG tablet PO PRN (19:12)
[2019-06-23] MEDS: ciprofloxacin/D5W 200mg/100mL 100 ML IV SCH (22:35)
[2019-06-23] MEDS: proCHLORperazine 10mg tablet PO SCH (22:35)
--- NOTE | 2019-06-23 23:25 | NUR ---
Problems reprioritized. Patient report given, questions answered & plan of care reviewed with JOSHUA Vazquez.
--- NOTE | 2019-06-23 23:31 | NUR ---
Patient in room [facility]. I have received report from JOSHUA Gonsalves and had the opportunity to ask questions and assume patient care. Patient is resting in bed with eyes closed in no apparent distress.
[2019-06-24] VITALS: BP 110/43
[2019-06-24] MEDS: metroNIDAZOLE-Flagyl 500mg/NS 100 ML IV SCH ×3 (00:14→17:45)
[2019-06-24] MEDS: normal saline 1000ml 1,000 ML IV SCH ×3 (02:14→20:34)
[2019-06-24] MEDS: proCHLORperazine 10mg tablet PO SCH ×4 (02:16→20:17)
[2019-06-24 05:41] LABS: BASOPHILS % (AUTO) 0 % (0-1); EOSINOPHILS % (AUTO) 0.5 % (0-6); HEMATOCRIT 25.1 % (35.0-45.0); HEMOGLOBIN 8.4 g/dl (12.0-16.0); LYMPHOCYTES # (AUTO) 0.4 X10'3 (1.1-4.8); LYMPHOCYTES % (AUTO) 12.8 % (21-51); MEAN CORPUSCULAR HEMOGLOBIN 29.9 PG (27.0-31.0); MEAN CORPUSCULAR HGB CONC 33.3 g/dL (33.0-36.5); MEAN CORPUSCULAR VOLUME 89.8 FL (78-98); MEAN PLATELET VOLUME 8.4 FL (7.4-10.4); MONOCYTES % (AUTO) 0.6 % (2-12); NEUTROPHILS # (AUTO) 2.7 X10'3 (1.8-7.7); NEUTROPHILS % (AUTO) 86.1 % (42-75); PLATELET COUNT 91 X10'3 (140-440); RED CELL DISTRIBUTION WIDTH 14.6 % (11.5-14.5); WHITE BLOOD COUNT 3.2 X10'3 (4.5-11.0)
[2019-06-24 06:00] LABS: ALANINE AMINOTRANSFERASE 17 U/L (12-78); ALBUMIN 2.2 G/DL (3.4-5.0); ALBUMIN/GLOBULIN RATIO 0.7 (1.1-1.5); ALKALINE PHOSPHATASE 70 IU/L (46-116); ANION GAP 8 (8-16); ASPARTATE AMINO TRANSFERASE 13 U/L (10-37); BILIRUBIN,TOTAL 0.6 MG/DL (0.1-1.0); BLOOD UREA NITROGEN 8 MG/DL (7-18); CALCIUM 7.5 MG/DL (8.5-10.1); CHLORIDE 107 MMOL/L (99-107); CREATININE 0.42 MG/DL (0.40-0.90); GLUCOSE 102 MG/DL (70-104); SODIUM 138 MMOL/L (135-145); TOTAL CARBON DIOXIDE 22.6 MMOL/L (24-32); TOTAL PROTEIN 5.2 G/DL (6.4-8.2); eGFR > 90 ML/MIN
[2019-06-24 06:16] LABS: POTASSIUM 2.7 MMOL/L (3.5-5.1)
--- NOTE | 2019-06-24 06:34 | NUR ---
Problems reprioritized. Patient report given, questions answered & plan of care reviewed with JOSHUA Juarez.
[2019-06-24 07:00] VITALS: BP 123/57
--- NOTE | 2019-06-24 07:17 | NUR ---
Patient in room [facility]. I have received report from JOSHUA Vazquez and had the opportunity to ask questions and assume patient care.
[2019-06-24] MEDS: pantoprazole 40mg Tablet.DR PO SCH (07:52)
[2019-06-24] MEDS: ciprofloxacin/D5W 200mg/100mL 100 ML IV SCH ×2 (07:52→20:17)
[2019-06-24] MEDS: levoTHYROXINE 25mcg tablet PO SCH (07:52)
[2019-06-24] MEDS: LORazepam 1 MG tablet PO PRN ×2 (07:53→15:39)
[2019-06-24] MEDS: potassium Cl 20 mEq SR tablet PO PRN (07:53)
[2019-06-24] MEDS ORDERED: non-formulary drug (Tiotropium Bromide (SPIRIVA inhaler) 1 CAP) INH SCH (08:00)
[2019-06-24] MEDS: K and/or MAG REPLACEMENT MC SCH (08:00)
[2019-06-24] MEDS: ipratropium/albuterol 3ml nebule NEB PRN ×2 (09:03→15:11)
[2019-06-24 11:00] VITALS: BP 97/44
[2019-06-24 15:00] LABS: BASOPHILS % (AUTO) 0.3 % (0-1); EOSINOPHILS % (AUTO) 0.7 % (0-6); LYMPHOCYTES # (AUTO) 0.7 X10'3 (1.1-4.8); LYMPHOCYTES % (AUTO) 21.8 % (21-51); MEAN CORPUSCULAR HGB CONC 33.4 g/dL (33.0-36.5); MEAN CORPUSCULAR VOLUME 89.9 FL (78-98); MEAN PLATELET VOLUME 8.2 FL (7.4-10.4); MONOCYTES % (AUTO) 0.6 % (2-12); NEUTROPHILS # (AUTO) 2.3 X10'3 (1.8-7.7); NEUTROPHILS % (AUTO) 76.6 % (42-75); PLATELET COUNT 107 X10'3 (140-440); RED BLOOD COUNT 3.01 X10'6 (4.20-5.60); RED CELL DISTRIBUTION WIDTH 14.4 % (11.5-14.5)
[2019-06-24 15:15] LABS: ALANINE AMINOTRANSFERASE 15 U/L (12-78); ALBUMIN 2.3 G/DL (3.4-5.0); ALBUMIN/GLOBULIN RATIO 0.7 (1.1-1.5); ALKALINE PHOSPHATASE 73 IU/L (46-116); ANION GAP 8 (8-16); ASPARTATE AMINO TRANSFERASE 11 U/L (10-37); BILIRUBIN,TOTAL 0.5 MG/DL (0.1-1.0); BLOOD UREA NITROGEN 6 MG/DL (7-18); BUN/CREATININE RATIO 13.6 (6.6-38.0); CALCIUM 7.7 MG/DL (8.5-10.1); CHLORIDE 105 MMOL/L (99-107); CREATININE 0.44 MG/DL (0.40-0.90); GLUCOSE 113 MG/DL (70-104); POTASSIUM 3.1 MMOL/L (3.5-5.1); SODIUM 136 MMOL/L (135-145); TOTAL CARBON DIOXIDE 22.8 MMOL/L (24-32); TOTAL PROTEIN 5.4 G/DL (6.4-8.2); eGFR > 90 ML/MIN
--- NOTE | 2019-06-24 16:32 | NUR ---
paged PICC RN for US guided IV. No IV access at this time. previous IV infiltrated. Multiple unsuccessful attempts made by staff nuclear weapons officer for new IV.
--- NOTE | 2019-06-24 18:20 | NUR ---
Problems reprioritized. Patient report given, questions answered & plan of care reviewed with JOSHUA Lazar.
--- NOTE | 2019-06-24 18:53 | NUR ---
Patient in room [facility]. I have received report from Ann LEWIS and had the opportunity to ask questions and assume patient care.
[2019-06-24 20:00] VITALS: BP 106/47
[2019-06-24] MEDS: lactulose 20gm/30ml cup PO SCH (20:16)
[2019-06-25] VITALS: BP 127/58
[2019-06-25] MEDS: metroNIDAZOLE-Flagyl 500mg/NS 100 ML IV SCH ×2 (01:11→07:54)
[2019-06-25] MEDS: lactulose 20gm/30ml cup PO SCH ×4 (01:12→19:17)
[2019-06-25] MEDS: proCHLORperazine 10mg tablet PO SCH ×4 (01:12→19:17)
[2019-06-25 05:11] LABS: BASOPHILS % (AUTO) 0.3 % (0-1); EOSINOPHILS % (AUTO) 1.9 % (0-6); HEMATOCRIT 25.7 % (35.0-45.0); HEMOGLOBIN 8.7 g/dl (12.0-16.0); LYMPHOCYTES # (AUTO) 0.6 X10'3 (1.1-4.8); LYMPHOCYTES % (AUTO) 32.3 % (21-51); MEAN CORPUSCULAR HGB CONC 33.8 g/dL (33.0-36.5); MEAN CORPUSCULAR VOLUME 88.8 FL (78-98); MEAN PLATELET VOLUME 7.7 FL (7.4-10.4); MONOCYTES % (AUTO) 1.3 % (2-12); NEUTROPHILS # (AUTO) 1.1 X10'3 (1.8-7.7); NEUTROPHILS % (AUTO) 64.2 % (42-75); PLATELET COUNT 112 X10'3 (140-440); RED BLOOD COUNT 2.89 X10'6 (4.20-5.60); RED CELL DISTRIBUTION WIDTH 14.3 % (11.5-14.5); WHITE BLOOD COUNT 1.8 X10'3 (4.5-11.0)
[2019-06-25 05:27] LABS: ALANINE AMINOTRANSFERASE 15 U/L (12-78); ALBUMIN 2.3 G/DL (3.4-5.0); ALBUMIN/GLOBULIN RATIO 0.7 (1.1-1.5); ALKALINE PHOSPHATASE 69 IU/L (46-116); ANION GAP 8 (8-16); ASPARTATE AMINO TRANSFERASE 8 U/L (10-37); BILIRUBIN,TOTAL 0.5 MG/DL (0.1-1.0); BLOOD UREA NITROGEN 1 MG/DL (7-18); CALCIUM 7.9 MG/DL (8.5-10.1); CHLORIDE 106 MMOL/L (99-107); CREATININE 0.49 MG/DL (0.40-0.90); GLUCOSE 115 MG/DL (70-104); MAGNESIUM 1.8 MG/DL (1.5-2.4); POTASSIUM 3.3 MMOL/L (3.5-5.1); SODIUM 138 MMOL/L (135-145); TOTAL CARBON DIOXIDE 23.9 MMOL/L (24-32); TOTAL PROTEIN 5.4 G/DL (6.4-8.2); eGFR > 90 ML/MIN
--- NOTE | 2019-06-25 06:22 | NUR ---
Patient in room [facility]. I have received report from JOSHUA Lazar and had the opportunity to ask questions and assume patient care.
--- NOTE | 2019-06-25 06:24 | NUR ---
Problems reprioritized. Patient report given, questions answered & plan of care reviewed with Tracy LEWIS.
[2019-06-25 07:30] VITALS: BP 119/50
[2019-06-25] MEDS: potassium Cl 20 mEq SR tablet PO PRN ×2 (07:54→17:48)
[2019-06-25] MEDS: normal saline 1000ml 1,000 ML IV SCH (07:54)
[2019-06-25] MEDS: pantoprazole 40mg Tablet.DR PO SCH (07:55)
[2019-06-25] MEDS: levoTHYROXINE 25mcg tablet PO SCH (07:55)
[2019-06-25] MEDS: enoxaparin 30mg/0.3ml syringe SUBCUT SCH (07:58)
[2019-06-25 08:00] VITALS: BP 111/44
[2019-06-25] MEDS: K and/or MAG REPLACEMENT MC SCH (08:00)
[2019-06-25 08:01] LABS: PLATELET ESTIMATE DECREASED; TOTAL CELLS COUNTED 100
[2019-06-25] MEDS: ipratropium/albuterol 3ml nebule NEB PRN ×3 (08:35→20:43)
[2019-06-25] MEDS: LORazepam 1 MG tablet PO PRN ×2 (08:44→19:18)
[2019-06-25] MEDS: clindamycin 600mg/D5W 50ml 50 ML IV SCH ×2 (10:03→16:42)
[2019-06-25] MEDS: oxyCODONE IR 5mg (immed. release) tablet PO PRN ×3 (10:03→21:30)
--- NOTE | 2019-06-25 11:12 | NUR ---
Dr Castro notified of WBC 1.8. States pt does not need to be in neutropenic precautions D/T absolute neutrophil count of 64%.
[2019-06-25 11:43] VITALS: BP 93/50
--- NOTE | 2019-06-25 12:00 | NUR ---
Received report from Mich, Student RN and JOSHUA Molina
--- NOTE | 2019-06-25 18:30 | NUR ---
Patient in room [facility]. I have received report from Juan LEWIS and had the opportunity to ask questions and assume patient care. Addendum: 06/25/19 at 1937 by Eloisa Carrasco RN Alexis nurse
--- NOTE | 2019-06-25 18:30 | NUR ---
Patient in room [facility]. I have received report from Tracy LEWIS and had the opportunity to ask questions and assume patient care.
--- NOTE | 2019-06-25 18:31 | NUR ---
Problems reprioritized. Patient report given, questions answered & plan of care reviewed with JOSHUA Lazar.
[2019-06-25 20:00] VITALS: BP 112/64
[2019-06-26 01:00] VITALS: BP 116/49
[2019-06-26] MEDS: lactulose 20gm/30ml cup PO SCH ×2 (01:19→08:00)
[2019-06-26] MEDS: proCHLORperazine 10mg tablet PO SCH ×2 (01:19→07:33)
[2019-06-26] MEDS: clindamycin 600mg/D5W 50ml 50 ML IV SCH ×2 (01:20→07:34)
[2019-06-26] MEDS: oxyCODONE IR 5mg (immed. release) tablet PO PRN (01:44)
[2019-06-26] MEDS: potassium Cl 20 mEq SR tablet PO PRN (01:45)
--- NOTE | 2019-06-26 06:42 | NUR ---
Problems reprioritized. Patient report given, questions answered & plan of care reviewed with Yaa LEWIS.
--- NOTE | 2019-06-26 06:45 | NUR ---
Patient in room [facility]. I have received report from Cady LEWIS and had the opportunity to ask questions and assume patient care.
[2019-06-26 07:30] VITALS: BP 122/70
[2019-06-26] MEDS: pantoprazole 40mg Tablet.DR PO SCH (07:32)
[2019-06-26] MEDS: LORazepam 1 MG tablet PO PRN (07:33)
[2019-06-26] MEDS: levoTHYROXINE 25mcg tablet PO SCH (07:33)
[2019-06-26] MEDS: enoxaparin 30mg/0.3ml syringe SUBCUT SCH (08:00)
[2019-06-26] MEDS: K and/or MAG REPLACEMENT MC SCH (08:00)
[2019-06-26] MEDS: ipratropium/albuterol 3ml nebule NEB PRN (08:21)
--- NOTE | 2019-06-26 09:02 | NUR ---
Patient refused morning dose of Lactulose. Patient was educated on the importance of taking the medication and what the medication does.
[2019-06-26] MEDS ORDERED: CLIN300C70 PO (09:04)
[2019-06-26] MEDS ORDERED: OXYC-658 PO (09:04)
[2019-06-26] MEDS ORDERED: MAGN400O6 PO (09:04)
--- NOTE | 2019-06-26 09:28 | NUR ---
Patient D/C'd by DR Castro. pt will stay on the floor until after lunch per pt request.
[2019-06-26 10:14] LABS: BASOPHILS % (AUTO) 0.4 % (0-1); EOSINOPHILS % (AUTO) 1.3 % (0-6); HEMATOCRIT 26.5 % (35.0-45.0); HEMOGLOBIN 8.9 g/dl (12.0-16.0); LYMPHOCYTES # (AUTO) 0.3 X10'3 (1.1-4.8); LYMPHOCYTES % (AUTO) 34.4 % (21-51); MEAN CORPUSCULAR HEMOGLOBIN 29.7 PG (27.0-31.0); MEAN CORPUSCULAR HGB CONC 33.4 g/dL (33.0-36.5); MEAN PLATELET VOLUME 7.5 FL (7.4-10.4); MONOCYTES # (AUTO) 0.1 X10'3 (0-0.9); MONOCYTES % (AUTO) 6.5 % (2-12); NEUTROPHILS # (AUTO) 0.5 X10'3 (1.8-7.7); NEUTROPHILS % (AUTO) 57.4 % (42-75); PLATELET COUNT 104 X10'3 (140-440); RED BLOOD COUNT 2.98 X10'6 (4.20-5.60); RED CELL DISTRIBUTION WIDTH 14.4 % (11.5-14.5)
[2019-06-26 10:19] LABS: WHITE BLOOD COUNT 0.9 X10'3 (4.5-11.0)
[2019-06-26] MEDS ORDERED: TBO-filgrastim 300 MCG/0.5 ML inj. SQ ONE (10:25)
[2019-06-26 10:31] LABS: ALANINE AMINOTRANSFERASE 15 U/L (12-78); ALBUMIN 2.5 G/DL (3.4-5.0); ALBUMIN/GLOBULIN RATIO 0.8 (1.1-1.5); ALKALINE PHOSPHATASE 67 IU/L (46-116); ANION GAP 8 (8-16); ASPARTATE AMINO TRANSFERASE 14 U/L (10-37); BILIRUBIN,TOTAL 0.4 MG/DL (0.1-1.0); BLOOD UREA NITROGEN 3 MG/DL (7-18); BUN/CREATININE RATIO 6.4 (6.6-38.0); CALCIUM 8.2 MG/DL (8.5-10.1); CHLORIDE 103 MMOL/L (99-107); CREATININE 0.47 MG/DL (0.40-0.90); GLUCOSE 121 MG/DL (70-104); MAGNESIUM 1.7 MG/DL (1.5-2.4); SODIUM 135 MMOL/L (135-145); TOTAL PROTEIN 5.7 G/DL (6.4-8.2); eGFR > 90 ML/MIN
[2019-06-26 10:35] LABS: POTASSIUM 3.1 MMOL/L (3.5-5.1)
[2019-06-26 11:00] VITALS: BP 100/63
--- NOTE | 2019-06-26 15:08 | NUR ---
Patient left the hospital at 1450. IV removed. Discharge and medication instructions given. Pt left via private vehicle accompanied by family on stable conditions.
== END 2019-06-26 14:49 | disposition home health service (06) | DRG 871 ==
LOC: ER 21:20 → ED HOLD 06-23 07:41 → SUR 3N 06-23 09:48
PROVIDERS: ADMIT Family Medicine; ATTEND Internal Medicine
PROC: 0FPB8DZ Removal of Intraluminal Device from Hepatobiliary Duct, Via Natural or Artificial Opening Endoscopic (ICD-10-PCS; principal; 2019-06-23)
PROC: 0F798DZ Dilation of Common Bile Duct with Intraluminal Device, Via Natural or Artificial Opening Endoscopic (ICD-10-PCS; 2019-06-23)
PROC: BF111ZZ Fluoroscopy of Biliary and Pancreatic Ducts using Low Osmolar Contrast (ICD-10-PCS; 2019-06-23)
PROC: BW211ZZ Computerized Tomography (CT Scan) of Abdomen and Pelvis using Low Osmolar Contrast (ICD-10-PCS; 2019-06-23)
DX: A41.9 Sepsis, unspecified organism (principal); K83.1 Obstruction of bile duct; C25.0 Malignant neoplasm of head of pancreas; L03.115 Cellulitis of right lower limb; D63.8 Anemia in other chronic diseases classified elsewhere; E87.6 Hypokalemia; K83.8 Other specified diseases of biliary tract; J44.9 Chronic obstructive pulmonary disease, unspecified; T45.1X5A Adverse effect of antineoplastic and immunosuppressive drugs, initial encounter; E05.90 Thyrotoxicosis, unspecified without thyrotoxic crisis or storm; D70.1 Agranulocytosis secondary to cancer chemotherapy; F17.210 Nicotine dependence, cigarettes, uncomplicated; F41.9 Anxiety disorder, unspecified; G89.29 Other chronic pain; Z79.890 Hormone replacement therapy; Z80.0 Family history of malignant neoplasm of digestive organs; Z90.710 Acquired absence of both cervix and uterus; Y92.89 Other specified places as the place of occurrence of the external cause; Z46.59 Encounter for fitting and adjustment of other gastrointestinal appliance and device; Z88.0 Allergy status to penicillin; Z88.8 Allergy status to other drugs, medicaments and biological substances; Z90.49 Acquired absence of other specified parts of digestive tract; Z79.899 Other long term (current) drug therapy
CPT/HCPCS: 36415; 43276; 71045; 73610; 74177; 76937; 80053; 81001; 82140; 83605; 83690; 83735; 84145; 84550; 85025; 85610; 85730; 87040; 87081; 87088; 93005; 93971; 94640; 94760; 97161; 97530; 99152; 99153; 99285; A4620; C1769; C1773; G0378; J0744; J1442; J1610; J1650; J1956; J2060; J2250; J2270; J2405; J3010; J3475; J3480; J3490; J7030; J7040; Q0164; Q9963; Q9967

== ENCOUNTER 2019-07-06 10:49 | Emergency (ER) | payer MEDICARE, MEDICAID ==
[~2019-07-06] VITALS: Ht 157.5 cm; Wt 51.8 kg
[~2019-07-06 10:49] MED LIST changes: -BETA45OI2 TOP; +CLIN300C70 PO; +MAGN400O6 PO; +ONDA8TAB13 PO; +OXYC-658 PO; +PROC10TA10 PO
[2019-07-06 10:56] VITALS: BP 117/47
--- NOTE | 2019-07-06 13:48 | NUR ---
Phlebotomy drawing patients blood.
[2019-07-06 14:06] LABS: BASOPHILS % (AUTO) 0.4 % (0-1); EOSINOPHILS # (AUTO) 0.1 X10'3 (0-0.9); EOSINOPHILS % (AUTO) 0.9 % (0-6); HEMATOCRIT 31.3 % (35.0-45.0); HEMOGLOBIN 10.2 g/dl (12.0-16.0); LYMPHOCYTES # (AUTO) 1.3 X10'3 (1.1-4.8); MEAN CORPUSCULAR HEMOGLOBIN 29.3 PG (27.0-31.0); MEAN CORPUSCULAR HGB CONC 32.7 g/dL (33.0-36.5); MEAN CORPUSCULAR VOLUME 89.6 FL (78-98); MONOCYTES # (AUTO) 0.4 X10'3 (0-0.9); MONOCYTES % (AUTO) 5.5 % (2-12); NEUTROPHILS # (AUTO) 6.2 X10'3 (1.8-7.7); NEUTROPHILS % (AUTO) 77.2 % (42-75); PLATELET COUNT 454 X10'3 (140-440); RED BLOOD COUNT 3.49 X10'6 (4.20-5.60); RED CELL DISTRIBUTION WIDTH 15.8 % (11.5-14.5)
[2019-07-06 14:16] LABS: PARTIAL THROMBOPLASTIN TIME 24 SECONDS (22-32)
[2019-07-06 14:18] LABS: ALANINE AMINOTRANSFERASE 22 U/L (12-78); ALBUMIN 3.1 G/DL (3.4-5.0); ALBUMIN/GLOBULIN RATIO 0.8 (1.1-1.5); ALKALINE PHOSPHATASE 101 IU/L (46-116); ANION GAP 6 (8-16); ASPARTATE AMINO TRANSFERASE 15 U/L (10-37); BILIRUBIN,TOTAL 0.5 MG/DL (0.1-1.0); BLOOD UREA NITROGEN 10 MG/DL (7-18); BUN/CREATININE RATIO 19.6 (6.6-38.0); CALCIUM 8.3 MG/DL (8.5-10.1); CHLORIDE 98 MMOL/L (99-107); CREATININE 0.51 MG/DL (0.40-0.90); GLUCOSE 104 MG/DL (70-104); POTASSIUM 4.3 MMOL/L (3.5-5.1); SODIUM 130 MMOL/L (135-145); TOTAL PROTEIN 6.8 G/DL (6.4-8.2); eGFR > 90 ML/MIN
[2019-07-06] MEDS ORDERED: AZIT500T9 PO (14:31)
[2019-07-06] MEDS ORDERED: LORazepam 1 MG tablet PO ONE (14:35)
[2019-07-06] MEDS ORDERED: ketorolac trometh. 30mg/ml inj. IV ONE (14:35)
[2019-07-06] MEDS ORDERED: ketorolac trometh. 30mg/ml inj. IM ONE (14:45)
== END 2019-07-06 15:03 | disposition home or self-care (01) ==
LOC: ER 10:51
DX: J06.9 Acute upper respiratory infection, unspecified (principal); J44.9 Chronic obstructive pulmonary disease, unspecified; E03.9 Hypothyroidism, unspecified; G89.29 Other chronic pain; F41.9 Anxiety disorder, unspecified; R79.1 Abnormal coagulation profile; Z90.49 Acquired absence of other specified parts of digestive tract; Z98.890 Other specified postprocedural states; Z88.0 Allergy status to penicillin; Z88.1 Allergy status to other antibiotic agents; Z79.899 Other long term (current) drug therapy
CPT/HCPCS: 36415; 71045; 80053; 85025; 85610; 85730; 96372; 99284; J1885

== ENCOUNTER 2019-07-20 13:50 | Inpatient (IN) | payer MEDICARE, MEDICAID ==
[~2019-07-20] VITALS: Ht 160 cm; Wt 52.3 kg
[~2019-07-20 13:50] MED LIST changes: +AZIT500T9 PO
[2019-07-20] MEDS ORDERED: CLIN300C71 (14:15)
[2019-07-20] MEDS ORDERED: LORazepam 1 MG tablet PO ONE (15:50)
[2019-07-20 15:52] LABS: PARTIAL THROMBOPLASTIN TIME 24 SECONDS (22-32)
--- NOTE | 2019-07-20 15:52 | NUR ---
Patient given water per Dr. Cabral. Lab at bedside drawing labs.
[2019-07-20 15:54] LABS: ALANINE AMINOTRANSFERASE 42 U/L (12-78); ALBUMIN 3.4 G/DL (3.4-5.0); ALBUMIN/GLOBULIN RATIO 0.9 (1.1-1.5); ALKALINE PHOSPHATASE 126 IU/L (46-116); ANION GAP 6 (8-16); ASPARTATE AMINO TRANSFERASE 42 U/L (10-37); BILIRUBIN,TOTAL 0.6 MG/DL (0.1-1.0); BLOOD UREA NITROGEN 17 MG/DL (7-18); BUN/CREATININE RATIO 29.3 (6.6-38.0); CALCIUM 8.3 MG/DL (8.5-10.1); CHLORIDE 99 MMOL/L (99-107); CREATININE 0.58 MG/DL (0.40-0.90); GLUCOSE 90 MG/DL (70-104); POTASSIUM 3.4 MMOL/L (3.5-5.1); SODIUM 132 MMOL/L (135-145); TOTAL CARBON DIOXIDE 26.6 MMOL/L (24-32); TOTAL PROTEIN 7.2 G/DL (6.4-8.2); eGFR > 90 ML/MIN
[2019-07-20 16:16] LABS: BASOPHILS % (AUTO) 0.2 % (0-1); EOSINOPHILS % (AUTO) 0.1 % (0-6); HEMATOCRIT 27.8 % (35.0-45.0); HEMOGLOBIN 9.3 g/dl (12.0-16.0); LYMPHOCYTES # (AUTO) 0.5 X10'3 (1.1-4.8); LYMPHOCYTES % (AUTO) 8.4 % (21-51); MEAN CORPUSCULAR HEMOGLOBIN 29.9 PG (27.0-31.0); MEAN CORPUSCULAR HGB CONC 33.3 g/dL (33.0-36.5); MEAN CORPUSCULAR VOLUME 89.7 FL (78-98); MEAN PLATELET VOLUME 8.2 FL (7.4-10.4); MONOCYTES % (AUTO) 0.5 % (2-12); NEUTROPHILS # (AUTO) 5.5 X10'3 (1.8-7.7); NEUTROPHILS % (AUTO) 90.8 % (42-75); PLATELET COUNT 135 X10'3 (140-440); RED BLOOD COUNT 3.09 X10'6 (4.20-5.60)
--- NOTE | 2019-07-20 16:31 | NUR ---
Patients sister called and wanted to leave number [phone].
[2019-07-20] MEDS ORDERED: acetaminophen 325mg tablet PO ONE (17:00)
[2019-07-20] MEDS ORDERED: CefTRIAXone 2gm/D5W 50ml 50 ML IV ONE (17:05)
[2019-07-20] MEDS ORDERED: ondansetron/PF 4mg/2ml inj IV PRN (18:20)
[2019-07-20] MEDS ORDERED: morphine 2 MG/ML inj. syringe IV PRN (18:20)
[2019-07-20] MEDS ORDERED: magnesium 4gm in 100ml NS 100 ML IV PRN (18:20)
[2019-07-20] MEDS ORDERED: magnesium 2GM in 50ml NS 50 ML IV PRN (18:20)
[2019-07-20] MEDS ORDERED: HYDROcodone/acetaminophen 5mg/325mg tablet PO PRN (18:20)
[2019-07-20] MEDS ORDERED: potassium Cl 20 mEq SR tablet PO PRN (18:20)
[2019-07-20] MEDS ORDERED: potassium CL 10mEq/100ml bag 100 ML IV PRN ×2 (18:20)
[2019-07-20] MEDS ORDERED: acetaminophen 325mg tablet PO PRN ×2 (18:20)
[2019-07-20] MEDS ORDERED: magnesium Cl slow-release 64mg tablet PO PRN (18:20)
[2019-07-20] MEDS: normal saline 1000ml 1,000 ML IV SCH (19:02)
[2019-07-20 19:19] LABS: CLARITY,URINE CLEAR (Clear); COLOR,URINE YELLOW (Yellow); GLUCOSE, URINE NEGATIVE (Neg); KETONES,URINE NEGATIVE (Neg); LEUKOCYTE ESTERASE ,URINE NEGATIVE (Neg); NITRITES, URINE NEGATIVE (Neg); OCCULT BLOOD,URINE NEGATIVE (Neg); PH,URINE 7.5 (4.8-8.0); PROTEIN,URINE NEGATIVE (Neg)
[2019-07-20 19:21] LABS: UA COLLECTION TYPE CLN CATCH MIDSTREAM
[2019-07-20] MEDS: cefepime 2g/NS 100ml ADVANTAGE 100 ML IV SCH (19:35)
[2019-07-20] MEDS ORDERED: albuterol 2.5 MG/3 ML nebule NEB SCH (20:00)
[2019-07-20] MEDS ORDERED: budesonide 0.5mg/2ml UD nebule IH SCH (20:00)
[2019-07-20] MEDS: K and/or MAG REPLACEMENT MC SCH (20:00)
[2019-07-20] MEDS: VANCOMYCIN 750MG IV in NS 250 ML IV SCH (20:33)
[2019-07-20] MEDS: proCHLORperazine 10mg tablet PO SCH (20:58)
[2019-07-20] MEDS: potassium Cl 20 mEq SR tablet PO PRN (20:58)
[2019-07-20] MEDS ORDERED: temazepam 15mg capsule PO PRN (21:00)
[2019-07-20] MEDS: heparin, porcine 5000 units/ml vial SQ SCH (21:05)
--- NOTE | 2019-07-20 21:13 | NUR ---
Patient in room ED 2. I have received report from JOSHUA Santa and had the opportunity to ask questions and assume patient care.
[2019-07-20 21:30] VITALS: BP 104/38
[2019-07-21] MEDS ORDERED: MEROPENEM 1GM/NS 50ML IVPB 50 ML IV SCH
[2019-07-21] MEDS: LORazepam 1 MG tablet PO PRN ×2 (00:04→10:58)
[2019-07-21 02:00] VITALS: BP 122/42
[2019-07-21] MEDS: proCHLORperazine 10mg tablet PO SCH ×4 (02:11→20:00)
[2019-07-21] MEDS: ipratropium/albuterol 3ml nebule NEB SCH ×4 (02:26→20:39)
[2019-07-21] MEDS: potassium Cl 20 mEq SR tablet PO PRN (03:55)
[2019-07-21 05:46] LABS: ALANINE AMINOTRANSFERASE 44 U/L (12-78); ALBUMIN 2.9 G/DL (3.4-5.0); ALBUMIN/GLOBULIN RATIO 0.9 (1.1-1.5); ALKALINE PHOSPHATASE 107 IU/L (46-116); ANION GAP 6 (8-16); ASPARTATE AMINO TRANSFERASE 35 U/L (10-37); BILIRUBIN,TOTAL 0.9 MG/DL (0.1-1.0); BLOOD UREA NITROGEN 13 MG/DL (7-18); BUN/CREATININE RATIO 21.7 (6.6-38.0); CALCIUM 8.1 MG/DL (8.5-10.1); CHLORIDE 103 MMOL/L (99-107); GLUCOSE 109 MG/DL (70-104); MAGNESIUM 1.8 MG/DL (1.5-2.4); POTASSIUM 3.6 MMOL/L (3.5-5.1); SODIUM 135 MMOL/L (135-145); TOTAL CARBON DIOXIDE 26.3 MMOL/L (24-32); TOTAL PROTEIN 6.3 G/DL (6.4-8.2); eGFR > 90 ML/MIN
[2019-07-21 06:22] LABS: BASOPHILS % (AUTO) 0.1 % (0-1); EOSINOPHILS % (AUTO) 0.1 % (0-6); HEMATOCRIT 23.5 % (35.0-45.0); LYMPHOCYTES # (AUTO) 0.4 X10'3 (1.1-4.8); LYMPHOCYTES % (AUTO) 5.9 % (21-51); MEAN CORPUSCULAR HEMOGLOBIN 29.9 PG (27.0-31.0); MEAN CORPUSCULAR HGB CONC 33.8 g/dL (33.0-36.5); MEAN CORPUSCULAR VOLUME 88.3 FL (78-98); MEAN PLATELET VOLUME 8.2 FL (7.4-10.4); MONOCYTES % (AUTO) 0.3 % (2-12); NEUTROPHILS # (AUTO) 6.2 X10'3 (1.8-7.7); NEUTROPHILS % (AUTO) 93.6 % (42-75); PLATELET COUNT 110 X10'3 (140-440); RED BLOOD COUNT 2.66 X10'6 (4.20-5.60); RED CELL DISTRIBUTION WIDTH 16.2 % (11.5-14.5); WHITE BLOOD COUNT 6.6 X10'3 (4.5-11.0)
--- NOTE | 2019-07-21 06:27 | NUR ---
Problems reprioritized. Patient report given, questions answered & plan of care reviewed with JOSHUA Martines.
[2019-07-21 06:30] VITALS: BP 109/43
--- NOTE | 2019-07-21 06:32 | NUR ---
Patient in room PCU 3010. I have received report from Shira LEWIS and had the opportunity to ask questions and assume patient care.
[2019-07-21] MEDS: pantoprazole 40mg Tablet.DR PO SCH (07:50)
[2019-07-21] MEDS: cefepime 2g/NS 100ml ADVANTAGE 100 ML IV SCH ×2 (07:50→20:00)
[2019-07-21] MEDS: levoTHYROXINE 25mcg tablet PO SCH (07:50)
[2019-07-21] MEDS: heparin, porcine 5000 units/ml vial SQ SCH ×2 (07:51→20:00)
[2019-07-21] MEDS: K and/or MAG REPLACEMENT MC SCH ×2 (08:00→20:00)
[2019-07-21] MEDS: budesonide 0.5mg/2ml UD nebule IH SCH ×2 (08:36→20:39)
[2019-07-21] MEDS: VANCOMYCIN 750MG IV in NS 250 ML IV SCH ×2 (08:58→22:28)
--- NOTE | 2019-07-21 10:21 | NUR ---
IV in left wrist not longer working. Patient is refusing IV attempts, will only allow with ultrasound guidance from PICC nurse. "Og [address]. Please place PIV when you can! Pt is refusing IV attempts without ultrasound" Addendum: 07/21/19 at 1026 by Bobbi Porras RN Earl SALMERON to make aware PAGER ID: [phone] MESSAGE: Bobbi ASTUDILLO. Og [place]. FYI pt currently has no IV access and is refusing attempts without ultrasound. Paged PICC nurse to place. Will resume IV ABX once we have IV placement. Thank you
[2019-07-21 11:00] VITALS: BP 106/45
[2019-07-21] MEDS: normal saline 1000ml 1,000 ML IV SCH (14:00)
[2019-07-21 15:00] VITALS: BP 105/44
[2019-07-21 18:00] VITALS: BP 103/58
--- NOTE | 2019-07-21 18:09 | NUR ---
Patient in room PCU 3010. I have received report from JOSHUA Martines and had the opportunity to ask questions and assume patient care.
--- NOTE | 2019-07-21 18:23 | NUR ---
Problems reprioritized. Patient report given, questions answered & plan of care reviewed with Shira LEWIS.
[2019-07-21 22:00] VITALS: BP 112/36
[2019-07-21] MEDS: magnesium hydroxide 30ml (MOM) UD suspension PO PRN (22:01)
[2019-07-21] MEDS: oxyCODONE IR 5mg (immed. release) tablet PO PRN (22:46)
[2019-07-22] MEDS: LORazepam 1 MG tablet PO PRN ×2 (01:07→13:32)
[2019-07-22] MEDS: ipratropium/albuterol 3ml nebule NEB SCH ×4 (02:36→20:35)
[2019-07-22] MEDS: proCHLORperazine 10mg tablet PO SCH ×4 (03:10→19:42)
[2019-07-22 03:18] VITALS: BP 116/41
[2019-07-22 05:05] LABS: BASOPHILS % (AUTO) 0.3 % (0-1); EOSINOPHILS % (AUTO) 0.5 % (0-6); HEMATOCRIT 22.5 % (35.0-45.0); HEMOGLOBIN 7.6 g/dl (12.0-16.0); LYMPHOCYTES # (AUTO) 0.5 X10'3 (1.1-4.8); LYMPHOCYTES % (AUTO) 12.3 % (21-51); MEAN CORPUSCULAR HEMOGLOBIN 30.2 PG (27.0-31.0); MEAN CORPUSCULAR HGB CONC 33.8 g/dL (33.0-36.5); MEAN CORPUSCULAR VOLUME 89.2 FL (78-98); MEAN PLATELET VOLUME 8.8 FL (7.4-10.4); MONOCYTES % (AUTO) 0.4 % (2-12); NEUTROPHILS # (AUTO) 3.5 X10'3 (1.8-7.7); NEUTROPHILS % (AUTO) 86.5 % (42-75); PLATELET COUNT 109 X10'3 (140-440); RED BLOOD COUNT 2.52 X10'6 (4.20-5.60); RED CELL DISTRIBUTION WIDTH 15.6 % (11.5-14.5)
[2019-07-22 05:24] LABS: ALANINE AMINOTRANSFERASE 40 U/L (12-78); ALBUMIN 2.2 G/DL (3.4-5.0); ALBUMIN/GLOBULIN RATIO 0.7 (1.1-1.5); ALKALINE PHOSPHATASE 96 IU/L (46-116); ANION GAP 8 (8-16); ASPARTATE AMINO TRANSFERASE 25 U/L (10-37); BILIRUBIN,TOTAL 0.5 MG/DL (0.1-1.0); BLOOD UREA NITROGEN 6 MG/DL (7-18); BUN/CREATININE RATIO 12.8 (6.6-38.0); CALCIUM 7.7 MG/DL (8.5-10.1); CHLORIDE 106 MMOL/L (99-107); CREATININE 0.47 MG/DL (0.40-0.90); GLUCOSE 106 MG/DL (70-104); POTASSIUM 3.2 MMOL/L (3.5-5.1); SODIUM 139 MMOL/L (135-145); TOTAL CARBON DIOXIDE 25.3 MMOL/L (24-32); TOTAL PROTEIN 5.5 G/DL (6.4-8.2); VANCOMYCIN,TROUGH 9.2 UG/ML (6.0-14.0); eGFR > 90 ML/MIN
[2019-07-22 06:30] VITALS: BP 111/44
--- NOTE | 2019-07-22 06:30 | NUR ---
Patient in room PCU 3010. I have received report from Shira LEWIS and had the opportunity to ask questions and assume patient care.
--- NOTE | 2019-07-22 06:36 | NUR ---
Problems reprioritized. Patient report given, questions answered & plan of care reviewed with JOSHUA Martines.
[2019-07-22] MEDS ORDERED: VANCOMYCIN LEVEL IV ONE ×2 (07:30→19:30)
[2019-07-22] MEDS: budesonide 0.5mg/2ml UD nebule IH SCH ×2 (07:46→20:35)
[2019-07-22] MEDS: cefepime 2g/NS 100ml ADVANTAGE 100 ML IV SCH ×2 (08:33→19:42)
[2019-07-22] MEDS: levoTHYROXINE 25mcg tablet PO SCH (08:34)
[2019-07-22] MEDS: pantoprazole 40mg Tablet.DR PO SCH (08:34)
[2019-07-22] MEDS: heparin, porcine 5000 units/ml vial SQ SCH ×2 (08:35→19:43)
[2019-07-22] MEDS: potassium Cl 20 mEq SR tablet PO PRN ×3 (08:52→19:43)
[2019-07-22] MEDS: oxyCODONE IR 5mg (immed. release) tablet PO PRN ×3 (08:52→21:40)
[2019-07-22] MEDS: K and/or MAG REPLACEMENT MC SCH ×2 (08:53→19:43)
[2019-07-22] MEDS: VANCOMYCIN 750MG IV in NS 250 ML IV SCH ×2 (09:53→21:34)
[2019-07-22] MEDS: magnesium hydroxide 30ml (MOM) UD suspension PO PRN (12:11)
[2019-07-22] MEDS: normal saline 1000ml 1,000 ML IV SCH ×2 (13:35→21:41)
--- NOTE | 2019-07-22 18:27 | NUR ---
Problems reprioritized. Patient report given, questions answered & plan of care reviewed with Iris LEWIS.
--- NOTE | 2019-07-22 18:30 | NUR ---
Patient in room PCU 3010. I have received report from PAUL and had the opportunity to ask questions and assume patient care.
[2019-07-22 19:00] VITALS: BP 108/43
[2019-07-22] MEDS: docusate sod 100mg capsule PO PRN (19:42)
[2019-07-22 22:00] VITALS: BP 100/35
[2019-07-23] MEDS: LORazepam 1 MG tablet PO PRN ×2 (01:06→12:48)
[2019-07-23 02:00] VITALS: BP 92/32
[2019-07-23] MEDS: proCHLORperazine 10mg tablet PO SCH ×4 (02:00→19:28)
[2019-07-23] MEDS: ipratropium/albuterol 3ml nebule NEB SCH ×4 (02:36→20:28)
[2019-07-23 05:27] LABS: BASOPHILS % (AUTO) 0.3 % (0-1); EOSINOPHILS # (AUTO) 0.1 X10'3 (0-0.9); EOSINOPHILS % (AUTO) 3.2 % (0-6); HEMATOCRIT 22.8 % (35.0-45.0); HEMOGLOBIN 7.7 g/dl (12.0-16.0); LYMPHOCYTES # (AUTO) 0.5 X10'3 (1.1-4.8); LYMPHOCYTES % (AUTO) 25.6 % (21-51); MEAN CORPUSCULAR HEMOGLOBIN 30.1 PG (27.0-31.0); MEAN CORPUSCULAR HGB CONC 33.9 g/dL (33.0-36.5); MEAN CORPUSCULAR VOLUME 88.7 FL (78-98); MONOCYTES % (AUTO) 1.8 % (2-12); NEUTROPHILS # (AUTO) 1.2 X10'3 (1.8-7.7); NEUTROPHILS % (AUTO) 69.1 % (42-75); PLATELET COUNT 111 X10'3 (140-440); RED BLOOD COUNT 2.57 X10'6 (4.20-5.60); RED CELL DISTRIBUTION WIDTH 16.1 % (11.5-14.5); WHITE BLOOD COUNT 1.8 X10'3 (4.5-11.0)
[2019-07-23 05:45] LABS: ALANINE AMINOTRANSFERASE 28 U/L (12-78); ALBUMIN 2.3 G/DL (3.4-5.0); ALBUMIN/GLOBULIN RATIO 0.7 (1.1-1.5); ALKALINE PHOSPHATASE 90 IU/L (46-116); ANION GAP 7 (8-16); ASPARTATE AMINO TRANSFERASE 13 U/L (10-37); BILIRUBIN,TOTAL 0.4 MG/DL (0.1-1.0); BLOOD UREA NITROGEN 6 MG/DL (7-18); BUN/CREATININE RATIO 11.1 (6.6-38.0); CALCIUM 7.8 MG/DL (8.5-10.1); CHLORIDE 105 MMOL/L (99-107); CREATININE 0.54 MG/DL (0.40-0.90); GLUCOSE 102 MG/DL (70-104); POTASSIUM 4.3 MMOL/L (3.5-5.1); SODIUM 137 MMOL/L (135-145); TOTAL CARBON DIOXIDE 25.5 MMOL/L (24-32); TOTAL PROTEIN 5.5 G/DL (6.4-8.2); eGFR > 90 ML/MIN
[2019-07-23 06:00] VITALS: BP 102/40
--- NOTE | 2019-07-23 06:43 | NUR ---
Problems reprioritized. Patient report given, questions answered & plan of care reviewed with KRISTA.
--- NOTE | 2019-07-23 06:44 | NUR ---
Patient in room PCU 3010. I have received report from JOSHUA Simmons and had the opportunity to ask questions and assume patient care.
[2019-07-23 07:34] LABS: ANISOCYTOSIS 1+; PLATELET ESTIMATE DECREASED; TOTAL CELLS COUNTED 100
[2019-07-23 07:35] LABS: POIKILOCYTOSIS FEW
[2019-07-23 07:36] LABS: ELLIPTOCYTES FEW; SPHEROCYTES FEW
[2019-07-23] MEDS: K and/or MAG REPLACEMENT MC SCH ×2 (08:00→20:00)
[2019-07-23] MEDS ORDERED: VANCOmycin 1250MG/NS 250ml Bag 250 ML IV SCH (08:00)
[2019-07-23] MEDS: cefepime 2g/NS 100ml ADVANTAGE 100 ML IV SCH (08:56)
[2019-07-23] MEDS: heparin, porcine 5000 units/ml vial SQ SCH ×2 (08:56→19:27)
[2019-07-23] MEDS: levoTHYROXINE 25mcg tablet PO SCH (08:57)
[2019-07-23] MEDS: budesonide 0.5mg/2ml UD nebule IH SCH ×2 (09:00→20:28)
[2019-07-23] MEDS: magnesium hydroxide 30ml (MOM) UD suspension PO PRN (09:06)
[2019-07-23] MEDS: pantoprazole 40mg Tablet.DR PO SCH (09:11)
[2019-07-23] MEDS: oxyCODONE IR 5mg (immed. release) tablet PO PRN ×2 (10:05→23:12)
[2019-07-23] MEDS: docusate sod 100mg capsule PO PRN (10:28)
[2019-07-23 11:00] VITALS: BP 115/47
[2019-07-23] MEDS ORDERED: bisacodyl 10mg suppository rectal RC PRN (12:45)
[2019-07-23] MEDS: ceFAZolin 1GM/D5W- ADD-VANTAGE 50 ML IV SCH (15:42)
[2019-07-23 16:39] LABS: OCCULT BLOOD STOOL NEGATIVE (Neg)
[2019-07-23 18:00] VITALS: BP 121/50
--- NOTE | 2019-07-23 18:18 | NUR ---
Problems reprioritized. Patient report given, questions answered & plan of care reviewed with JOSHUA Williamson.
--- NOTE | 2019-07-23 18:30 | NUR ---
Patient in room PCU 3010. I have received report from Segun LEWIS and had the opportunity to ask questions and assume patient care.
[2019-07-23] MEDS ORDERED: docusate sod 100mg capsule PO ONE (20:00)
[2019-07-23] MEDS: normal saline 1000ml 1,000 ML IV SCH (20:54)
[2019-07-23 22:00] VITALS: BP 99/45
[2019-07-24] MEDS: ceFAZolin 1GM/D5W- ADD-VANTAGE 50 ML IV SCH ×3 (00:14→15:45)
[2019-07-24] MEDS: proCHLORperazine 10mg tablet PO SCH ×4 (01:47→19:21)
[2019-07-24] MEDS: LORazepam 1 MG tablet PO PRN ×3 (01:47→22:32)
[2019-07-24 02:00] VITALS: BP 100/48
[2019-07-24] MEDS: ipratropium/albuterol 3ml nebule NEB SCH ×4 (02:14→20:10)
[2019-07-24 04:37] LABS: BASOPHILS % (AUTO) 0.2 % (0-1); HEMATOCRIT 23.4 % (35.0-45.0); HEMOGLOBIN 7.8 g/dl (12.0-16.0); LYMPHOCYTES # (AUTO) 0.6 X10'3 (1.1-4.8); LYMPHOCYTES % (AUTO) 39.3 % (21-51); MEAN CORPUSCULAR HEMOGLOBIN 29.5 PG (27.0-31.0); MEAN CORPUSCULAR HGB CONC 33.3 g/dL (33.0-36.5); MEAN CORPUSCULAR VOLUME 88.6 FL (78-98); MONOCYTES # (AUTO) 0.1 X10'3 (0-0.9); MONOCYTES % (AUTO) 6.2 % (2-12); NEUTROPHILS # (AUTO) 0.8 X10'3 (1.8-7.7); NEUTROPHILS % (AUTO) 52.3 % (42-75); PLATELET COUNT 110 X10'3 (140-440); RED BLOOD COUNT 2.64 X10'6 (4.20-5.60); RED CELL DISTRIBUTION WIDTH 16.1 % (11.5-14.5); WHITE BLOOD COUNT 1.5 X10'3 (4.5-11.0)
[2019-07-24 05:01] LABS: ALANINE AMINOTRANSFERASE 25 U/L (12-78); ALBUMIN 2.5 G/DL (3.4-5.0); ALBUMIN/GLOBULIN RATIO 0.8 (1.1-1.5); ALKALINE PHOSPHATASE 93 IU/L (46-116); ANION GAP 4 (8-16); ASPARTATE AMINO TRANSFERASE 14 U/L (10-37); BILIRUBIN,TOTAL 0.3 MG/DL (0.1-1.0); BLOOD UREA NITROGEN 7 MG/DL (7-18); BUN/CREATININE RATIO 11.7 (6.6-38.0); CALCIUM 8.3 MG/DL (8.5-10.1); CHLORIDE 106 MMOL/L (99-107); GLUCOSE 109 MG/DL (70-104); MAGNESIUM 2.1 MG/DL (1.5-2.4); SODIUM 138 MMOL/L (135-145); TOTAL CARBON DIOXIDE 27.8 MMOL/L (24-32); TOTAL PROTEIN 5.7 G/DL (6.4-8.2); eGFR > 90 ML/MIN
[2019-07-24 06:00] VITALS: BP 117/59
--- NOTE | 2019-07-24 06:16 | NUR ---
Problems reprioritized. Patient report given, questions answered & plan of care reviewed with Comfort Tuttle RN.
--- NOTE | 2019-07-24 06:23 | NUR ---
Patient in room PCU 3010. I have received report from Alfredito RN and had the opportunity to ask questions and assume patient care.
[2019-07-24] MEDS: levoTHYROXINE 25mcg tablet PO SCH (07:44)
[2019-07-24] MEDS: magnesium hydroxide 30ml (MOM) UD suspension PO PRN (07:44)
[2019-07-24] MEDS: pantoprazole 40mg Tablet.DR PO SCH (07:44)
[2019-07-24] MEDS: heparin, porcine 5000 units/ml vial SQ SCH ×2 (07:45→19:22)
[2019-07-24] MEDS: K and/or MAG REPLACEMENT MC SCH ×2 (08:00→20:00)
[2019-07-24] MEDS: budesonide 0.5mg/2ml UD nebule IH SCH ×2 (09:19→20:10)
[2019-07-24 09:20] LABS: ANISOCYTOSIS 1+; PLATELET ESTIMATE DECREASED; TOTAL CELLS COUNTED 100
[2019-07-24 09:21] LABS: BURR CELLS FEW; POIKILOCYTOSIS FEW; SCHISTOCYTES FEW
[2019-07-24 11:00] VITALS: BP 118/41
[2019-07-24] MEDS: oxyCODONE IR 5mg (immed. release) tablet PO PRN (13:49)
[2019-07-24 15:00] VITALS: BP 122/45
[2019-07-24 18:00] VITALS: BP 114/50
--- NOTE | 2019-07-24 18:06 | NUR ---
Problems reprioritized. Patient report given, questions answered & plan of care reviewed with Alfredito RN. Patient laying in bed, eyes closed.
--- NOTE | 2019-07-24 18:30 | NUR ---
Patient in room PCU 3010. I have received report from Comfort Tuttle RN and had the opportunity to ask questions and assume patient care.
[2019-07-24] MEDS ORDERED: VANCOMYCIN LEVEL IV ONE (19:30)
--- NOTE | 2019-07-24 21:48 | NUR ---
NOTIFIED PAGER ID: [phone] MESSAGE: BurtBandarLala, 3010- pt is requesting her PO Ativan to be switched to Q6 prn, and would like medication for hemorrhoids. Alfredito LEWIS
[2019-07-24 22:00] VITALS: BP 117/42
[2019-07-24] MEDS ORDERED: phenylephrine/cocoa butter (Preparation H) suppository RC PRN (22:00)
[2019-07-24] MEDS ORDERED: PHENYLEPH/MIN OIL/PETROLAT hemorrhoid oint 57GM tube RC PRN (22:10)
[2019-07-25] VITALS (14 sets, daily range): BP systolic 97–145; BP diastolic 45–87
[2019-07-25] MEDS: ceFAZolin 1GM/D5W- ADD-VANTAGE 50 ML IV SCH ×3 (00:13→15:18)
[2019-07-25] MEDS: ipratropium/albuterol 3ml nebule NEB SCH ×4 (02:05→20:57)
[2019-07-25] MEDS: proCHLORperazine 10mg tablet PO SCH ×4 (02:31→19:54)
[2019-07-25 04:38] LABS: BASOPHILS % (AUTO) 0.3 % (0-1); EOSINOPHILS % (AUTO) 1.5 % (0-6); HEMOGLOBIN 7.1 g/dl (12.0-16.0); LYMPHOCYTES # (AUTO) 0.5 X10'3 (1.1-4.8); LYMPHOCYTES % (AUTO) 31.5 % (21-51); MEAN CORPUSCULAR HEMOGLOBIN 29.7 PG (27.0-31.0); MEAN CORPUSCULAR HGB CONC 33.6 g/dL (33.0-36.5); MEAN CORPUSCULAR VOLUME 88.5 FL (78-98); MEAN PLATELET VOLUME 7.9 FL (7.4-10.4); MONOCYTES # (AUTO) 0.1 X10'3 (0-0.9); MONOCYTES % (AUTO) 8.4 % (2-12); NEUTROPHILS % (AUTO) 58.3 % (42-75); PLATELET COUNT 84 X10'3 (140-440); RED BLOOD COUNT 2.37 X10'6 (4.20-5.60); RED CELL DISTRIBUTION WIDTH 16.1 % (11.5-14.5); WHITE BLOOD COUNT 1.7 X10'3 (4.5-11.0)
--- NOTE | 2019-07-25 04:52 | NUR ---
NOTIFIED PAGER ID: [phone] MESSAGE: Lala Dallas, 4550- Critical value, Hematocrit 21.0 hemoglobin 7.1 RENITA Glaser RN
[2019-07-25 04:57] LABS: ALANINE AMINOTRANSFERASE 31 U/L (12-78); ALBUMIN 2.3 G/DL (3.4-5.0); ALBUMIN/GLOBULIN RATIO 0.8 (1.1-1.5); ALKALINE PHOSPHATASE 79 IU/L (46-116); ANION GAP 4 (8-16); ASPARTATE AMINO TRANSFERASE 27 U/L (10-37); BILIRUBIN,TOTAL 0.2 MG/DL (0.1-1.0); BLOOD UREA NITROGEN 6 MG/DL (7-18); BUN/CREATININE RATIO 11.5 (6.6-38.0); CALCIUM 8.1 MG/DL (8.5-10.1); CHLORIDE 108 MMOL/L (99-107); CREATININE 0.52 MG/DL (0.40-0.90); GLUCOSE 108 MG/DL (70-104); POTASSIUM 3.4 MMOL/L (3.5-5.1); SODIUM 140 MMOL/L (135-145); TOTAL CARBON DIOXIDE 27.8 MMOL/L (24-32); TOTAL PROTEIN 5.1 G/DL (6.4-8.2); eGFR > 90 ML/MIN
--- NOTE | 2019-07-25 06:14 | NUR ---
Problems reprioritized. Patient report given, questions answered & plan of care reviewed with Segun LEWIS.
--- NOTE | 2019-07-25 06:14 | NUR ---
Patient in room PCU 3010. I have received report from JOSHUA Glaser and had the opportunity to ask questions and assume patient care.
[2019-07-25] MEDS: pantoprazole 40mg Tablet.DR PO SCH (07:18)
[2019-07-25] MEDS: levoTHYROXINE 25mcg tablet PO SCH (07:19)
[2019-07-25] MEDS: LORazepam 1 MG tablet PO PRN ×3 (07:29→22:19)
[2019-07-25] MEDS: K and/or MAG REPLACEMENT MC SCH ×4 (08:00→20:00)
[2019-07-25] MEDS: budesonide 0.5mg/2ml UD nebule IH SCH ×2 (09:00→20:57)
[2019-07-25] MEDS ORDERED: CEPH500C5 PO (10:53)
[2019-07-25] MEDS ORDERED: potassium CL 10mEq/100ml bag 100 ML IV PRN (11:20)
[2019-07-25] MEDS ORDERED: potassium Cl 20 mEq SR tablet PO PRN (11:20)
[2019-07-25] MEDS: potassium Cl 20 mEq SR tablet PO PRN (12:48)
[2019-07-25] MEDS: oxyCODONE IR 5mg (immed. release) tablet PO PRN ×2 (12:49→19:54)
--- NOTE | 2019-07-25 13:26 | NUR ---
Initial: Pt admit with cellulitis to the right leg. Cellulitis improving per MD notes. Pt on regular diet with fluctuating PO intake, previously averaging 50% however up to 75-100% PO intake most recent meals meeting nutrient needs with adequate protein to support skin integrity. LBM 07/24. No nutrition intervention warranted at this time. Will continue to follow. Recommendations: 1) Continue regular diet 2) Monitor need for ONS/additional protein 3) Bowel care PRN 4) Wt per rx Addendum: 07/25/19 at [address] Amended: Links added.
[2019-07-25 15:06] LABS: HEMATOCRIT 23.1 % (35.0-45.0); HEMOGLOBIN 7.7 g/dl (12.0-16.0); MEAN CORPUSCULAR HEMOGLOBIN 29.4 PG (27.0-31.0); MEAN CORPUSCULAR HGB CONC 33.3 g/dL (33.0-36.5); MEAN CORPUSCULAR VOLUME 88.2 FL (78-98); MEAN PLATELET VOLUME 7.9 FL (7.4-10.4); PLATELET COUNT 102 X10'3 (140-440); RED BLOOD COUNT 2.62 X10'6 (4.20-5.60); RED CELL DISTRIBUTION WIDTH 15.8 % (11.5-14.5); WHITE BLOOD COUNT 2.5 X10'3 (4.5-11.0)
[2019-07-25] MEDS: normal saline 1000ml 1,000 ML IV SCH ×2 (15:18→18:00)
[2019-07-25] MEDS ORDERED: TBO-filgrastim 300 MCG/0.5 ML inj. SQ SCH (17:00)
[2019-07-25] MEDS ORDERED: filgrastim 300mcg inj SQ SCH (18:18)
--- NOTE | 2019-07-25 18:44 | NUR ---
Report given to JOSHUA Helms Blood perfusion assumed by JOSHUA Helms
[2019-07-25] MEDS ORDERED: TBO-filgrastim 480 MCG/0.8ml syringe SQ SCH (19:41)
[2019-07-26 00:25] VITALS: BP 138/75
[2019-07-26 00:55] VITALS: BP 119/52
--- NOTE | 2019-07-26 00:55 | NUR ---
BLOOD STOPPED blood stopped with no transfusion reaction
[2019-07-26] MEDS: proCHLORperazine 10mg tablet PO SCH ×3 (01:45→13:35)
[2019-07-26] MEDS: ceFAZolin 1GM/D5W- ADD-VANTAGE 50 ML IV SCH ×2 (01:45→09:14)
[2019-07-26 03:00] VITALS: BP 119/52
[2019-07-26] MEDS: ipratropium/albuterol 3ml nebule NEB SCH (03:21)
[2019-07-26 06:00] VITALS: BP 121/44
[2019-07-26 06:21] LABS: MAGNESIUM 1.9 MG/DL (1.5-2.4); POTASSIUM 3.4 MMOL/L (3.5-5.1)
--- NOTE | 2019-07-26 06:35 | NUR ---
Patient in room PCU 3010. I have received report from JOSHUA Helms and had the opportunity to ask questions and assume patient care.
[2019-07-26] MEDS: pantoprazole 40mg Tablet.DR PO SCH (07:30)
[2019-07-26] MEDS: levoTHYROXINE 25mcg tablet PO SCH (07:31)
[2019-07-26] MEDS: LORazepam 1 MG tablet PO PRN (07:31)
[2019-07-26] MEDS: K and/or MAG REPLACEMENT MC SCH ×2 (08:00)
[2019-07-26] MEDS: potassium Cl 20 mEq SR tablet PO PRN (09:14)
[2019-07-26] MEDS: oxyCODONE IR 5mg (immed. release) tablet PO PRN (09:25)
[2019-07-26] MEDS ORDERED: epoetin 20,000 units/ml inj SQ ONE (12:35)
[2019-07-26] MEDS ORDERED: TBO-filgrastim 300 MCG/0.5 ML inj. SQ SCH (13:55)
[2019-07-27] MEDS ORDERED: TBO-filgrastim 300 MCG/0.5 ML inj. SQ SCH (08:00)
--- NOTE | 2019-07-29 14:23 | NUR ---
Case Management DC follow-up: Unable to contact. one phone number disconnected, second phone number person ID'd on recording not on contact list, no similar last names.
== END 2019-07-26 14:12 | disposition home health service (06) | DRG 603 ==
LOC: ER 13:51 → ED HOLD 18:18 → PCU 3S 21:30
PROVIDERS: ADMIT Internal Medicine; ATTEND Internal Medicine
PROC: 30233N1 Transfusion of Nonautologous Red Blood Cells into Peripheral Vein, Percutaneous Approach (ICD-10-PCS; principal; 2019-07-25)
DX: L03.115 Cellulitis of right lower limb (principal); C25.9 Malignant neoplasm of pancreas, unspecified; E87.1 Hypo-osmolality and hyponatremia; D61.818 Other pancytopenia; E03.9 Hypothyroidism, unspecified; J44.9 Chronic obstructive pulmonary disease, unspecified; K59.00 Constipation, unspecified; Z66 Do not resuscitate; G89.29 Other chronic pain; F41.9 Anxiety disorder, unspecified; Z88.0 Allergy status to penicillin; Z85.07 Personal history of malignant neoplasm of pancreas; Z88.1 Allergy status to other antibiotic agents
CPT/HCPCS: 36415; 71045; 76937; 80053; 80202; 81003; 82272; 83605; 83735; 84132; 84145; 85025; 85027; 85610; 85730; 86885; 86900; 86901; 86920; 87040; 87081; 93971; 94640; 94760; 96365; 97110; 97112; 97116; 97161; 97530; 99285; G0378; J0690; J0692; J0696; J1442; J1644; J2270; J2405; J3370; J7030; J7050; J7626; P9016; Q0164; Q4081

== ENCOUNTER 2019-09-15 10:33 | Day surgery (SDC) | payer MEDICARE, MEDICAID ==
[~2019-09-15] VITALS: Ht 157.5 cm; Wt 49.5 kg
[2019-09-15] VITALS (11 sets, daily range): BP systolic 123–143; BP diastolic 59–75
[~2019-09-15 10:33] MED LIST changes: -AZIT500T9 PO; -CLIN300C70 PO; -OXYC-658 PO; -PANT40TA4 PO
[2019-09-15] MEDS ORDERED: POLY119P2 PO (11:57)
[2019-09-15] MEDS ORDERED: IBUP-2697 PO (11:58)
[2019-09-15] MEDS ORDERED: ALBU18HF2 INH (11:59)
[2019-09-15] MEDS ORDERED: MICO45CR11 VG (11:59)
[2019-09-15] MEDS ORDERED: diphenhydrAMINE 50 mg/ml inj ONE (12:13)
[2019-09-15] MEDS ORDERED: MIDAZolam 5mg/5ml vial ONE (12:13)
[2019-09-15] MEDS ORDERED: fentaNYL/PF 50MCG/1 ML 2ML syringe ONE (12:13)
[2019-09-15] MEDS ORDERED: LIDOcaine Viscous 15ml cup ONE (12:14)
[2019-09-15] MEDS ORDERED: glucagon, human recombinant 1mg kit ONE (12:14)
[2019-09-15] MEDS ORDERED: iohexol 300 MG/1 ML 50ml polymer ONE (12:14)
== END 2019-09-15 14:40 | disposition home or self-care (01) ==
LOC: GI LAB 10:33
PROVIDERS: ATTEND Internal Medicine Gastroenterology
DX: Z46.59 Encounter for fitting and adjustment of other gastrointestinal appliance and device (principal); K83.1 Obstruction of bile duct; Z85.07 Personal history of malignant neoplasm of pancreas; Z88.0 Allergy status to penicillin; Z88.1 Allergy status to other antibiotic agents; Z88.7 Allergy status to serum and vaccine
CPT/HCPCS: 43276; 74328; 99152; 99153; C1769; C1773; J1200; J1610; J2250; J3010; J7040; Q9967; A4620

== ENCOUNTER 2019-12-16 10:44 | Day surgery (SDC) | payer MEDICARE, MEDICAID ==
[2019-12-16] VITALS (8 sets, daily range): BP systolic 118–142; BP diastolic 61–72
[~2019-12-16] VITALS: Ht 157.5 cm; Wt 47.3 kg
[~2019-12-16 10:44] MED LIST changes: +ALBU18HF2 INH; -FLUT1DIS4 PO; +IBUP-2697 PO; -MAGN400O6 PO; +MICO45CR11 VG; +POLY119P2 PO
[2019-12-16] MEDS ORDERED: FLUT1DIS20 INH (11:20)
[2019-12-16] MEDS ORDERED: PANT-47 PO (11:20)
[2019-12-16] MEDS ORDERED: LEVO75TA7 PO (11:23)
[2019-12-16] MEDS ORDERED: LORA2TAB96 PO (11:24)
[2019-12-16] MEDS ORDERED: LIDOcaine Viscous 15ml cup ONE (11:54)
[2019-12-16] MEDS ORDERED: fentaNYL/PF 50MCG/1 ML 2ML syringe ONE (11:54)
[2019-12-16] MEDS ORDERED: MIDAZolam 5mg/5ml vial ONE (11:54)
[2019-12-16] MEDS ORDERED: glucagon, human recombinant 1mg kit ONE (11:55)
[2019-12-16] MEDS ORDERED: iohexol 300 MG/1 ML 50ml polymer ONE (11:55)
== END 2019-12-16 14:45 | disposition home or self-care (01) ==
LOC: GI LAB 10:44
PROVIDERS: ATTEND Internal Medicine Gastroenterology
DX: Z46.59 Encounter for fitting and adjustment of other gastrointestinal appliance and device (principal); K83.1 Obstruction of bile duct; Z88.0 Allergy status to penicillin; Z88.1 Allergy status to other antibiotic agents; Z88.8 Allergy status to other drugs, medicaments and biological substances; Z88.7 Allergy status to serum and vaccine
CPT/HCPCS: 43276; 99152; 99153; C1769; C1773; J1610; J2250; J3010; J7040; Q9967; A4620

== ENCOUNTER 2020-03-17 09:03 | Day surgery (SDC) | payer MEDICARE, MEDICAID ==
[2020-03-17] VITALS (8 sets, daily range): BP systolic 116–138; BP diastolic 59–79
[~2020-03-17] VITALS: Ht 157.5 cm; Wt 51.4 kg
[~2020-03-17 09:03] MED LIST changes: +FLUT1DIS20 INH; -LEVO50TA8 PO; +LEVO75TA7 PO; -LORA1TAB PO; +LORA2TAB96 PO; -MICO45CR11 VG; +PANT-47 PO; -PROC10TA10 PO
[2020-03-17] MEDS ORDERED: fentaNYL/PF 50MCG/1 ML 2ML syringe ONE (09:13)
[2020-03-17] MEDS ORDERED: LIDOcaine Viscous 15ml cup ONE (09:13)
[2020-03-17] MEDS ORDERED: MIDAZolam 5mg/5ml vial ONE (09:13)
[2020-03-17] MEDS ORDERED: glucagon, human recombinant 1mg kit ONE (09:13)
[2020-03-17] MEDS ORDERED: iohexol 300 MG/1 ML 50ml polymer ONE (09:14)
[2020-03-17] MEDS ORDERED: DOCU-148 PO (09:40)
[2020-03-17] MEDS ORDERED: FAMO40TA73 PO (09:40)
[2020-03-17] MEDS ORDERED: PROC10TA10 PO (09:41)
[2020-03-17] MEDS ORDERED: MAGN400O6 PO (09:43)
[2020-03-17] MEDS ORDERED: LACT1CAP65 PO (09:43)
[2020-03-17] MEDS ORDERED: levoFLOXACIN-Levaquin 500mg/D5 100 ML IV ONE (11:22)
== END 2020-03-17 12:25 | disposition home or self-care (01) ==
LOC: GI LAB 09:03
PROVIDERS: ATTEND Internal Medicine Gastroenterology
DX: Z46.59 Encounter for fitting and adjustment of other gastrointestinal appliance and device (principal); K83.8 Other specified diseases of biliary tract
CPT/HCPCS: 43264; 43275; C1769; C1773; G0500; J1610; J1956; J2250; J3010; J7040; Q9967; 43276; 99152; 99153; A4620

== ENCOUNTER 2020-03-17 17:10 | Emergency (ER) | payer MEDICARE, MEDICAID ==
[~2020-03-17] VITALS: Ht 157.5 cm; Wt 49.8 kg
[~2020-03-17 17:10] MED LIST changes: +DOCU-148 PO; +FAMO40TA73 PO; +LACT1CAP65 PO; +MAGN400O6 PO; +PROC10TA10 PO
[2020-03-17] MEDS ORDERED: cefepime 1GM in D5W 50mL 50 ML IV ONE (17:35)
[2020-03-17] MEDS ORDERED: normal saline 1000ML IV soln IV ONE (17:35)
[2020-03-17] MEDS ORDERED: cefepime inj. 1 GM in normal saline 100ml IV soln 100 ML IV ONE (17:54)
[2020-03-17 18:15] LABS: BASOPHILS % (AUTO) 0.2 % (0-1); EOSINOPHILS % (AUTO) 0.9 % (0-6); HEMATOCRIT 38.1 % (35.0-45.0); HEMOGLOBIN 12.6 g/dl (12.0-16.0); LYMPHOCYTES # (AUTO) 0.3 X10'3 (1.1-4.8); MEAN CORPUSCULAR HEMOGLOBIN 29.3 PG (27.0-31.0); MEAN CORPUSCULAR HGB CONC 32.9 g/dL (33.0-36.5); MEAN CORPUSCULAR VOLUME 88.9 FL (78-98); MEAN PLATELET VOLUME 7.3 FL (7.4-10.4); MONOCYTES # (AUTO) 0.3 X10'3 (0-0.9); MONOCYTES % (AUTO) 5.7 % (2-12); NEUTROPHILS % (AUTO) 86.2 % (42-75); PLATELET COUNT 119 X10'3 (140-440); RED BLOOD COUNT 4.29 X10'6 (4.20-5.60); RED CELL DISTRIBUTION WIDTH 15.2 % (11.5-14.5); WHITE BLOOD COUNT 4.6 X10'3 (4.5-11.0)
[2020-03-17 18:32] LABS: ALANINE AMINOTRANSFERASE 315 U/L (12-78); ALBUMIN 3.2 G/DL (3.4-5.0); ALBUMIN/GLOBULIN RATIO 0.9 (1.1-1.5); ALKALINE PHOSPHATASE 332 IU/L (46-116); ANION GAP 12 (8-16); ASPARTATE AMINO TRANSFERASE 368 U/L (10-37); BILIRUBIN,TOTAL 2.1 MG/DL (0.1-1.0); BLOOD UREA NITROGEN 17 MG/DL (7-18); BUN/CREATININE RATIO 32.7 (6.6-38.0); CALCIUM 8.3 MG/DL (8.5-10.1); CHLORIDE 100 MMOL/L (99-107); CREATININE 0.52 MG/DL (0.40-0.90); GLUCOSE 104 MG/DL (70-104); POTASSIUM 3.9 MMOL/L (3.5-5.1); SODIUM 136 MMOL/L (135-145); TOTAL PROTEIN 6.9 G/DL (6.4-8.2); eGFR > 90 ML/MIN
[2020-03-17 18:56] LABS: CLARITY,URINE CLEAR (Clear); COLOR,URINE YELLOW (Yellow); GLUCOSE, URINE NEGATIVE (Neg); KETONES,URINE NEGATIVE (Neg); LEUKOCYTE ESTERASE ,URINE NEGATIVE (Neg); NITRITES, URINE NEGATIVE (Neg); OCCULT BLOOD,URINE NEGATIVE (Neg); PH,URINE 7.5 (4.8-8.0); PROTEIN,URINE NEGATIVE (Neg)
[2020-03-17 18:58] LABS: UA COLLECTION TYPE CLN CATCH MIDSTREAM
--- NOTE | 2020-03-17 18:58 | NUR ---
Pt's sister Prema phoned and message left regarding the patient's being ready to discharged to home.
--- NOTE | 2020-03-17 19:00 | NUR ---
Pt's Sister Prema is on the way to the hospital to pick her up for discharge.
[2020-03-17 19:20] VITALS: BP 129/62
== END 2020-03-17 19:17 | disposition home or self-care (01) ==
LOC: ER 17:10
DX: R50.82 Postprocedural fever (principal); R05 Cough; R53.1 Weakness; J44.9 Chronic obstructive pulmonary disease, unspecified; E05.90 Thyrotoxicosis, unspecified without thyrotoxic crisis or storm; G89.29 Other chronic pain; F41.9 Anxiety disorder, unspecified; Z87.01 Personal history of pneumonia (recurrent); Z87.440 Personal history of urinary (tract) infections; Z85.9 Personal history of malignant neoplasm, unspecified; Z90.49 Acquired absence of other specified parts of digestive tract; Z98.890 Other specified postprocedural states; Z88.0 Allergy status to penicillin; Z88.8 Allergy status to other drugs, medicaments and biological substances; Z88.1 Allergy status to other antibiotic agents; Z88.7 Allergy status to serum and vaccine; Z79.899 Other long term (current) drug therapy
CPT/HCPCS: 36415; 71045; 80053; 81003; 83605; 84145; 85025; 87040; 93005; 96365; 99285; J0692; J7030

== ENCOUNTER 2020-03-19 17:18 | Inpatient (IN) | payer MEDICARE, MEDICAID ==
[~2020-03-19] VITALS: Ht 157.5 cm; Wt 50.9 kg
[~2020-03-19 17:18] MED LIST changes: -COL100C PO; -IBUP-2697 PO; -ONDA8TAB13 PO; -PANT-47 PO
[2020-03-19] MEDS ORDERED: morphine 4 MG/ML inj SYRINge IV ONE (18:10)
[2020-03-19] MEDS ORDERED: ondansetron/PF 4mg/2ml inj IV ONE (18:10)
[2020-03-19] MEDS ORDERED: LORazepam 1 MG tablet PO ONE (18:30)
--- NOTE | 2020-03-19 19:31 | NUR ---
US IN ROOM
[2020-03-19 19:53] LABS: BASOPHILS % (AUTO) 0.2 % (0-1); EOSINOPHILS % (AUTO) 0.4 % (0-6); HEMATOCRIT 34.2 % (35.0-45.0); HEMOGLOBIN 11.4 g/dl (12.0-16.0); LYMPHOCYTES # (AUTO) 0.5 X10'3 (1.1-4.8); MEAN CORPUSCULAR HEMOGLOBIN 29.4 PG (27.0-31.0); MEAN CORPUSCULAR HGB CONC 33.3 g/dL (33.0-36.5); MEAN CORPUSCULAR VOLUME 88.4 FL (78-98); MEAN PLATELET VOLUME 7.9 FL (7.4-10.4); MONOCYTES # (AUTO) 0.4 X10'3 (0-0.9); MONOCYTES % (AUTO) 6.3 % (2-12); NEUTROPHILS # (AUTO) 5.9 X10'3 (1.8-7.7); NEUTROPHILS % (AUTO) 85.1 % (42-75); PLATELET COUNT 116 X10'3 (140-440); RED BLOOD COUNT 3.87 X10'6 (4.20-5.60); RED CELL DISTRIBUTION WIDTH 15.5 % (11.5-14.5); WHITE BLOOD COUNT 6.9 X10'3 (4.5-11.0)
[2020-03-19 19:59] LABS: ALANINE AMINOTRANSFERASE 115 U/L (12-78); ALBUMIN 2.8 G/DL (3.4-5.0); ALKALINE PHOSPHATASE 227 IU/L (46-116); ANION GAP 8 (8-16); ASPARTATE AMINO TRANSFERASE 33 U/L (10-37); BILIRUBIN,TOTAL 8.5 MG/DL (0.1-1.0); BLOOD UREA NITROGEN 11 MG/DL (7-18); BUN/CREATININE RATIO 23.4 (6.6-38.0); CALCIUM 8.3 MG/DL (8.5-10.1); CHLORIDE 98 MMOL/L (99-107); CREATININE 0.47 MG/DL (0.40-0.90); GLUCOSE 108 MG/DL (70-104); LIPASE 174 U/L (73-393); POTASSIUM 3.4 MMOL/L (3.5-5.1); SODIUM 130 MMOL/L (135-145); TOTAL CARBON DIOXIDE 23.7 MMOL/L (24-32); eGFR > 90 ML/MIN
[2020-03-19 20:02] LABS: ALBUMIN/GLOBULIN RATIO 0.8 (1.1-1.5); TOTAL PROTEIN 6.4 G/DL (6.4-8.2)
[2020-03-19 20:21] LABS: CLARITY,URINE CLEAR (Clear); COLOR,URINE AMBER (Yellow); GLUCOSE, URINE NEGATIVE (Neg); KETONES,URINE 15 mg/dl (Neg); LEUKOCYTE ESTERASE ,URINE NEGATIVE (Neg); NITRITES, URINE NEGATIVE (Neg); OCCULT BLOOD,URINE SMALL (Neg); PROTEIN,URINE 30 mg/dl (Neg)
[2020-03-19 20:32] LABS: UA COLLECTION TYPE VOIDED
[2020-03-19 20:44] LABS: BACTERIA,URINE NONE SEEN /HPF (Neg); FINE GRANULAR CAST 0-3 /LPF (NEGATIVE); HYALINE CASTS 0-3 /LPF (NEGATIVE); MUCUS STRANDS MODERATE /LPF (Neg); SQUAMOUS EPITHELIAL CELL,UR FEW /LPF (FEW); WBC,URINE 0-4 /HPF (0-4)
[2020-03-19] MEDS ORDERED: temazepam 15mg capsule PO PRN (21:00)
--- NOTE | 2020-03-19 21:00 | NUR ---
PT PROVIDED PHONE AND ASSISTED TO CALL EHR SON, TAE. SON TOLD ME HE IS VERY CONCERNED ABOUT PT AND NEEDS TO SPEAK WITH MD. DR. MCKEON TO THE ROOM AND SPOKE WITH HIM. PT TO BE ADMITTED.
[2020-03-19 21:15] LABS: BILIRUBIN,DIRECT 7.7 MG/DL (0-0.3)
[2020-03-19] MEDS ORDERED: KEN0.1O TP (21:44)
[2020-03-19] MEDS ORDERED: LORA2TAB96 PO (21:44)
[2020-03-19] MEDS ORDERED: SYN0.088T PO (21:44)
[2020-03-19] MEDS ORDERED: oxyCODONE IR 5mg (immed. release) tablet PO PRN (22:55)
[2020-03-19] MEDS ORDERED: magnesium 4gm in 100ml NS 100 ML IV PRN (22:55)
[2020-03-19] MEDS ORDERED: mag hydrox/Alum hydrox/simeth 30ml oral suspension PO PRN (22:55)
[2020-03-19] MEDS ORDERED: potassium Cl 20 mEq SR tablet PO PRN (22:55)
[2020-03-19] MEDS ORDERED: bisacodyl 10mg suppository rectal RC PRN (22:55)
[2020-03-19] MEDS ORDERED: potassium CL 10mEq/100ml bag 100 ML IV PRN ×2 (22:55)
[2020-03-19] MEDS ORDERED: magnesium hydroxide 30ml (MOM) UD suspension PO PRN (22:55)
[2020-03-19] MEDS ORDERED: magnesium Cl slow-release 64mg tablet PO PRN (22:55)
[2020-03-19] MEDS ORDERED: HYDROmorphone inj. 0.5 MG/0.5 ML DISP.SYRIN IV PRN (22:55)
[2020-03-19] MEDS ORDERED: magnesium 2GM in 50ml NS 50 ML IV PRN (22:55)
[2020-03-19] MEDS ORDERED: ondansetron/PF 4mg/2ml inj IV PRN (22:55)
[2020-03-19] MEDS ORDERED: metoclopramide 5 mg/ml inj IV PRN (22:55)
--- NOTE | 2020-03-20 01:00 | NUR ---
Patient in room [facility]. I have received report from Anyi LEWIS and had the opportunity to ask questions and assume patient care.
[2020-03-20] MEDS: normal saline 1000ml 1,000 ML IV SCH ×3 (01:01→18:55)
[2020-03-20 01:17] LABS: PARTIAL THROMBOPLASTIN TIME 29 SECONDS (22-32)
[2020-03-20 01:30] VITALS: BP 107/42
[2020-03-20] MEDS ORDERED: loratadine 10mg tablet PO PRN (03:55)
[2020-03-20 05:28] LABS: ALANINE AMINOTRANSFERASE 94 U/L (12-78); ALBUMIN 2.4 G/DL (3.4-5.0); ALKALINE PHOSPHATASE 208 IU/L (46-116); ANION GAP 8 (8-16); ASPARTATE AMINO TRANSFERASE 28 U/L (10-37); BILIRUBIN,TOTAL 8.7 MG/DL (0.1-1.0); BLOOD UREA NITROGEN 10 MG/DL (7-18); BUN/CREATININE RATIO 16.9 (6.6-38.0); CHLORIDE 98 MMOL/L (99-107); CREATININE 0.59 MG/DL (0.40-0.90); GLUCOSE 109 MG/DL (70-104); POTASSIUM 3.3 MMOL/L (3.5-5.1); SODIUM 130 MMOL/L (135-145); TOTAL CARBON DIOXIDE 23.7 MMOL/L (24-32); eGFR > 90 ML/MIN
[2020-03-20 05:34] LABS: ALBUMIN/GLOBULIN RATIO 0.7 (1.1-1.5); PHOSPHORUS 1.9 MG/DL (2.3-4.5)
[2020-03-20 06:07] LABS: BASOPHILS % (AUTO) 0.2 % (0-1); EOSINOPHILS % (AUTO) 0.6 % (0-6); HEMATOCRIT 33.4 % (35.0-45.0); HEMOGLOBIN 11.2 g/dl (12.0-16.0); LYMPHOCYTES # (AUTO) 0.7 X10'3 (1.1-4.8); LYMPHOCYTES % (AUTO) 11.9 % (21-51); MEAN CORPUSCULAR HEMOGLOBIN 29.8 PG (27.0-31.0); MEAN CORPUSCULAR HGB CONC 33.4 g/dL (33.0-36.5); MEAN CORPUSCULAR VOLUME 89.1 FL (78-98); MONOCYTES # (AUTO) 0.5 X10'3 (0-0.9); MONOCYTES % (AUTO) 8.5 % (2-12); NEUTROPHILS # (AUTO) 4.5 X10'3 (1.8-7.7); NEUTROPHILS % (AUTO) 78.8 % (42-75); PLATELET COUNT 120 X10'3 (140-440); RED BLOOD COUNT 3.75 X10'6 (4.20-5.60); RED CELL DISTRIBUTION WIDTH 15.7 % (11.5-14.5); WHITE BLOOD COUNT 5.7 X10'3 (4.5-11.0)
--- NOTE | 2020-03-20 06:30 | NUR ---
Patient in room [facility] 356. I have received report from JOSHUA Teague and had the opportunity to ask questions and assume patient care.
--- NOTE | 2020-03-20 06:41 | NUR ---
Problems reprioritized. Patient report given, questions answered & plan of care reviewed with Radha LEWIS.
[2020-03-20 07:00] VITALS: BP 112/54
[2020-03-20] MEDS: K and/or MAG REPLACEMENT MC SCH ×2 (08:00→20:00)
[2020-03-20] MEDS ORDERED: proCHLORperazine 10mg tablet PO PRN (08:00)
[2020-03-20] MEDS ORDERED: non-formulary drug (Tiotropium Bromide (SPIRIVA inhaler) 1 CAP) INH SCH (08:00)
[2020-03-20] MEDS ORDERED: non-formulary drug (Fluticasone/Salmeterol (Advair 250-50 Diskus) 1 PUFFS) INH SCH (08:00)
[2020-03-20] MEDS: levoTHYROXINE 88mcg tablet PO SCH (08:35)
[2020-03-20] MEDS: famotidine 20mg tablet PO SCH (08:35)
[2020-03-20] MEDS: docusate sod 100mg capsule PO SCH ×2 (08:38→20:43)
[2020-03-20] MEDS: budesonide 0.5mg/2ml UD nebule IH SCH ×2 (08:54→20:50)
[2020-03-20] MEDS: ipratropium/albuterol 3ml nebule IH SCH ×3 (08:54→20:50)
[2020-03-20] MEDS: polyethylene glycol 3350 17gm powd pack PO SCH (11:54)
[2020-03-20] MEDS: potassium Cl 20 mEq SR tablet PO PRN ×2 (11:55→16:03)
[2020-03-20] MEDS: magnesium hydroxide 30ml (MOM) UD suspension PO SCH (11:55)
[2020-03-20] MEDS: LORazepam 1 MG tablet PO PRN (11:55)
--- NOTE | 2020-03-20 12:40 | NUR ---
Problems reprioritized. Patient report given, questions answered & plan of care reviewed with JOSHUA Palmer.
--- NOTE | 2020-03-20 12:45 | NUR ---
Patient in room [facility] 356. I have received report from JOSHUA Garcia and had the opportunity to ask questions and assume patient care.
[2020-03-20 12:49] VITALS: BP 106/53
[2020-03-20 12:57] VITALS: BP 106/53
[2020-03-20 18:15] VITALS: BP 132/51
--- NOTE | 2020-03-20 18:45 | NUR ---
Problems reprioritized. Patient report given, questions answered & plan of care reviewed with JOSHUA Holguin.
[2020-03-20] MEDS: acetaminophen 325mg tablet PO PRN (20:44)
[2020-03-20] MEDS: levoFLOXACIN-Levaquin 500mg/D5 100 ML IV SCH (20:48)
[2020-03-21] VITALS: BP 106/43
[2020-03-21] MEDS: metroNIDAZOLE-Flagyl 500mg/NS 100 ML IV SCH ×3 (00:52→16:00)
[2020-03-21] MEDS: ipratropium/albuterol 3ml nebule IH SCH ×3 (02:26→15:21)
[2020-03-21] MEDS: LORazepam 1 MG tablet PO PRN ×3 (03:29→16:26)
--- NOTE | 2020-03-21 04:22 | NUR ---
Patient assisted to BSC. Upon transfer back to bed, stated that it felt like she still had to urinate. Bladderscan showed 579ml. Patient got back to commode. Had BM and urinated. Post void scan showed 305ml. Educated patient on risks of urinary retention; patient refused even the thought of a catheter, straight or granger. Stated that she will just get up to go pee more. Will continue to monitor.
[2020-03-21 05:08] LABS: BASOPHILS % (AUTO) 0.2 % (0-1); EOSINOPHILS % (AUTO) 0.4 % (0-6); HEMATOCRIT 34.9 % (35.0-45.0); HEMOGLOBIN 11.6 g/dl (12.0-16.0); LYMPHOCYTES # (AUTO) 0.6 X10'3 (1.1-4.8); LYMPHOCYTES % (AUTO) 12.1 % (21-51); MEAN CORPUSCULAR HEMOGLOBIN 29.5 PG (27.0-31.0); MEAN CORPUSCULAR HGB CONC 33.2 g/dL (33.0-36.5); MEAN CORPUSCULAR VOLUME 88.9 FL (78-98); MONOCYTES # (AUTO) 0.5 X10'3 (0-0.9); MONOCYTES % (AUTO) 9.9 % (2-12); NEUTROPHILS % (AUTO) 77.4 % (42-75); PLATELET COUNT 136 X10'3 (140-440); RED BLOOD COUNT 3.93 X10'6 (4.20-5.60); RED CELL DISTRIBUTION WIDTH 15.8 % (11.5-14.5); WHITE BLOOD COUNT 5.1 X10'3 (4.5-11.0)
[2020-03-21 05:12] LABS: ALANINE AMINOTRANSFERASE 71 U/L (12-78); ALBUMIN 2.4 G/DL (3.4-5.0); ALKALINE PHOSPHATASE 208 IU/L (46-116); ANION GAP 10 (8-16); ASPARTATE AMINO TRANSFERASE 26 U/L (10-37); BLOOD UREA NITROGEN 8 MG/DL (7-18); BUN/CREATININE RATIO 14.8 (6.6-38.0); CHLORIDE 102 MMOL/L (99-107); CREATININE 0.54 MG/DL (0.40-0.90); GLUCOSE 102 MG/DL (70-104); MAGNESIUM 2.1 MG/DL (1.5-2.4); SODIUM 135 MMOL/L (135-145); TOTAL CARBON DIOXIDE 23.2 MMOL/L (24-32); eGFR > 90 ML/MIN
[2020-03-21 05:13] LABS: ALBUMIN/GLOBULIN RATIO 0.6 (1.1-1.5); PHOSPHORUS 2.3 MG/DL (2.3-4.5); POTASSIUM 3.2 MMOL/L (3.5-5.1); TOTAL PROTEIN 6.2 G/DL (6.4-8.2)
[2020-03-21] MEDS: normal saline 1000ml 1,000 ML IV SCH ×2 (05:33→08:33)
--- NOTE | 2020-03-21 06:15 | NUR ---
Patient in room [facility] 356. I have received report from JOSHUA Holguin and had the opportunity to ask questions and assume patient care.
[2020-03-21] MEDS: K and/or MAG REPLACEMENT MC SCH (06:47)
[2020-03-21 07:00] VITALS: BP 131/50
[2020-03-21] MEDS: docusate sod 100mg capsule PO SCH (08:00)
[2020-03-21] MEDS: polyethylene glycol 3350 17gm powd pack PO SCH (08:00)
[2020-03-21] MEDS: magnesium hydroxide 30ml (MOM) UD suspension PO SCH (08:00)
[2020-03-21] MEDS: budesonide 0.5mg/2ml UD nebule IH SCH (08:09)
[2020-03-21] MEDS: potassium Cl 20 mEq SR tablet PO PRN ×2 (08:26→12:12)
[2020-03-21] MEDS: levoTHYROXINE 88mcg tablet PO SCH (08:27)
[2020-03-21] MEDS: famotidine 20mg tablet PO SCH (08:32)
[2020-03-21] MEDS: acetaminophen 325mg tablet PO PRN (08:38)
[2020-03-21] MEDS: levoFLOXACIN-Levaquin 500mg/D5 100 ML IV SCH (10:43)
[2020-03-21 12:00] VITALS: BP 109/56
--- NOTE | 2020-03-21 17:50 | NUR ---
Report to be called to [facility]. Report given to flight staff. Pt transferred to [facility] via fixed wing. IV intact. All belongings sent w/pt.
[2020-03-21] MEDS ORDERED: lactobacillus rhamnosus 10,000 MMU CELLS/CAPSULE PO SCH (20:00)
== END 2020-03-21 17:50 | disposition short-term general hospital (02) | DRG 444 ==
LOC: ER 17:18 → ED HOLD 22:55 → SUR 3N 03-20 00:40
PROVIDERS: ADMIT Family Medicine; ATTEND Internal Medicine
DX: K83.09 Other cholangitis (principal); K83.1 Obstruction of bile duct; E87.1 Hypo-osmolality and hyponatremia; R17 Unspecified jaundice; E03.9 Hypothyroidism, unspecified; E87.6 Hypokalemia; F17.210 Nicotine dependence, cigarettes, uncomplicated; F41.9 Anxiety disorder, unspecified; G89.29 Other chronic pain; J44.9 Chronic obstructive pulmonary disease, unspecified; Z66 Do not resuscitate; Z85.07 Personal history of malignant neoplasm of pancreas; Z90.49 Acquired absence of other specified parts of digestive tract; Z92.21 Personal history of antineoplastic chemotherapy; Z88.0 Allergy status to penicillin; Z88.7 Allergy status to serum and vaccine; Z88.8 Allergy status to other drugs, medicaments and biological substances; Z79.899 Other long term (current) drug therapy
CPT/HCPCS: 36415; 70450; 71045; 72125; 73030; 74176; 74181; 76700; 80053; 81001; 82140; 82248; 83690; 83735; 84100; 84443; 84484; 85025; 85610; 85730; 87040; 87081; 87635; 94640; 94760; 99285; G0378; J1956; J3490; J7030; J7626

== ENCOUNTER 2020-03-25 12:09 | Inpatient (IN) | payer MEDICARE, MEDICAID ==
[~2020-03-25] VITALS: Ht 157.5 cm; Wt 57.6 kg
[~2020-03-25 12:09] MED LIST changes: +KEN0.1O TP; -LEVO75TA7 PO; +SYN0.088T PO
--- NOTE | 2020-03-25 14:00 | NUR ---
I have received report from Yaakov, RN at [facility] and had the opportunity to ask questions. Yaakov informed me they have a pick up and delivery driver time for [id number] and will transport patient to [facility].
--- NOTE | 2020-03-25 18:16 | NUR ---
Problems reprioritized. Patient report given, questions answered & plan of care reviewed with JOSHUA Sheets. Pt hasn't arrived from [facility] yet.
[2020-03-25 22:45] VITALS: BP 123/61
[2020-03-25] MEDS ORDERED: normal saline 1000ml 1,000 ML IV SCH (23:18)
[2020-03-25] MEDS ORDERED: acetaminophen 325mg tablet PO PRN (23:20)
[2020-03-25] MEDS ORDERED: magnesium 2GM in 50ml NS 50 ML IV PRN (23:20)
[2020-03-25] MEDS ORDERED: potassium CL 10mEq/100ml bag 100 ML IV PRN ×2 (23:20)
[2020-03-25] MEDS ORDERED: magnesium Cl slow-release 64mg tablet PO PRN (23:20)
[2020-03-25] MEDS ORDERED: potassium Cl 20 mEq SR tablet PO PRN ×2 (23:20)
[2020-03-25] MEDS ORDERED: ondansetron/PF 4mg/2ml inj IV PRN (23:20)
[2020-03-25] MEDS ORDERED: HYDROcodone/acetaminophen 5mg/325mg tablet PO PRN (23:20)
[2020-03-25] MEDS ORDERED: magnesium 4gm in 100ml NS 100 ML IV PRN (23:20)
[2020-03-25] MEDS ORDERED: morphine 2 MG/ML inj. syringe IV PRN (23:20)
[2020-03-26 01:48] VITALS: BP 123/60
[2020-03-26] MEDS ORDERED: LORazepam 1 MG tablet PO PRN (04:10)
[2020-03-26 05:52] LABS: BASOPHILS % (AUTO) 0.6 % (0-1); EOSINOPHILS # (AUTO) 0.2 X10'3 (0-0.9); EOSINOPHILS % (AUTO) 4.1 % (0-6); HEMATOCRIT 29.7 % (35.0-45.0); LYMPHOCYTES # (AUTO) 1.1 X10'3 (1.1-4.8); LYMPHOCYTES % (AUTO) 25.6 % (21-51); MEAN CORPUSCULAR HEMOGLOBIN 29.6 PG (27.0-31.0); MEAN CORPUSCULAR HGB CONC 33.8 g/dL (33.0-36.5); MEAN CORPUSCULAR VOLUME 87.5 FL (78-98); MEAN PLATELET VOLUME 7.5 FL (7.4-10.4); MONOCYTES # (AUTO) 0.4 X10'3 (0-0.9); MONOCYTES % (AUTO) 9.4 % (2-12); NEUTROPHILS # (AUTO) 2.6 X10'3 (1.8-7.7); NEUTROPHILS % (AUTO) 60.3 % (42-75); PLATELET COUNT 289 X10'3 (140-440); RED BLOOD COUNT 3.39 X10'6 (4.20-5.60); RED CELL DISTRIBUTION WIDTH 15.9 % (11.5-14.5); WHITE BLOOD COUNT 4.4 X10'3 (4.5-11.0)
[2020-03-26 06:11] LABS: ALBUMIN 2.2 G/DL (3.4-5.0); ANION GAP 6 (8-16); BLOOD UREA NITROGEN 3 MG/DL (7-18); BUN/CREATININE RATIO 5.2 (6.6-38.0); CALCIUM 8.4 MG/DL (8.5-10.1); CHLORIDE 101 MMOL/L (99-107); CREATININE 0.58 MG/DL (0.40-0.90); GLUCOSE 107 MG/DL (70-104); SODIUM 134 MMOL/L (135-145); TOTAL CARBON DIOXIDE 27.2 MMOL/L (24-32); eGFR > 90 ML/MIN
[2020-03-26 06:16] LABS: POTASSIUM 3.8 MMOL/L (3.5-5.1)
--- NOTE | 2020-03-26 06:20 | NUR ---
Patient arrived approx 2245 from [facility] in ambulance. Ambulated with walker to bathroom. A&Ox4, vital signs stable. Educated on MRSA swab, tele monitoring, oriented to the room.
[2020-03-26 06:30] VITALS: BP 122/55
--- NOTE | 2020-03-26 06:30 | NUR ---
Patient in room PCU 3012. I have received report from JOSHUA Vega and had the opportunity to ask questions and assume patient care.
--- NOTE | 2020-03-26 06:40 | NUR ---
Problems reprioritized. Patient report given, questions answered & plan of care reviewed with JOSHUA Palmer.
[2020-03-26] MEDS ORDERED: levoFLOXACIN-Levaquin 500mg/D5 100 ML IV SCH (08:00)
[2020-03-26] MEDS ORDERED: K and/or MAG REPLACEMENT MC SCH (08:00)
[2020-03-26] MEDS: metroNIDAZOLE-Flagyl 500mg/NS 100 ML IV SCH ×2 (08:51)
[2020-03-26 11:00] VITALS: BP 127/57
[2020-03-26] MEDS ORDERED: LEVO75TA7 PO (11:04)
[2020-03-26] MEDS ORDERED: magnesium hydroxide 30ml (MOM) UD suspension PO PRN (11:45)
[2020-03-26 15:00] VITALS: BP 108/63
--- NOTE | 2020-03-26 16:32 | NUR ---
Malnutrition consult. Pt ate one meal so far, 0-25% PO intake regular diet. Per documented weight history she has had no weight loss in the past year. No edema. Admitted as [place] [facility] [place] she had metal biliary stent placed. Attempted bedside visit to obtain food preferences and interview patient however patient was sleeping with eye mask on. Will attempt visit another. Does not appear to be malnourished at this time. Addendum: 03/26/20 at [address] Amended: Links added.
[2020-03-26] MEDS ORDERED: CIPR-230 PO (17:17)
[2020-03-26] MEDS ORDERED: METR-159 PO (17:17)
--- NOTE | 2020-03-26 18:20 | NUR ---
DC inst provided to pt. IV already DC'd. All belongings sent w/pt. WC to front lobby.
== END 2020-03-26 18:50 | disposition home health service (06) | DRG 444 ==
LOC: PCU 3S 22:46 → UNDOADMIN 22:46 → PCU 3S 23:18
PROVIDERS: ADMIT Family Medicine; ATTEND Family Medicine
DX: K83.09 Other cholangitis (principal); K83.1 Obstruction of bile duct; C25.9 Malignant neoplasm of pancreas, unspecified; E87.1 Hypo-osmolality and hyponatremia; E03.9 Hypothyroidism, unspecified; J44.9 Chronic obstructive pulmonary disease, unspecified; G89.29 Other chronic pain; M54.9 Dorsalgia, unspecified; Z66 Do not resuscitate; Z79.51 Long term (current) use of inhaled steroids; Z88.0 Allergy status to penicillin; Z88.7 Allergy status to serum and vaccine; Z88.8 Allergy status to other drugs, medicaments and biological substances; Z79.899 Other long term (current) drug therapy; Z90.49 Acquired absence of other specified parts of digestive tract
CPT/HCPCS: 36415; 80048; 83735; 85025; 87081; G0378; J1956; J3490; J7030

== ENCOUNTER 2020-04-05 10:20 | Emergency (ER) | payer MEDICARE, MEDICAID ==
[~2020-04-05] VITALS: Ht 157.5 cm; Wt 47.3 kg
[~2020-04-05 10:20] MED LIST changes: +CIPR-230 PO; +LEVO75TA7 PO; +METR-159 PO; -PROC10TA10 PO; -SYN0.088T PO
[2020-04-05] MEDS ORDERED: normal saline 1000ML IV soln IVB ONE (10:40)
[2020-04-05 11:23] LABS: BASOPHILS % (AUTO) 0.3 % (0-1); EOSINOPHILS # (AUTO) 0.1 X10'3 (0-0.9); HEMATOCRIT 34.6 % (35.0-45.0); HEMOGLOBIN 11.5 g/dl (12.0-16.0); LYMPHOCYTES # (AUTO) 1.2 X10'3 (1.1-4.8); LYMPHOCYTES % (AUTO) 18.7 % (21-51); MEAN CORPUSCULAR HEMOGLOBIN 30.6 PG (27.0-31.0); MEAN CORPUSCULAR HGB CONC 33.4 g/dL (33.0-36.5); MEAN CORPUSCULAR VOLUME 91.7 FL (78-98); MEAN PLATELET VOLUME 7.4 FL (7.4-10.4); MONOCYTES # (AUTO) 0.4 X10'3 (0-0.9); MONOCYTES % (AUTO) 6.3 % (2-12); NEUTROPHILS # (AUTO) 4.5 X10'3 (1.8-7.7); NEUTROPHILS % (AUTO) 73.7 % (42-75); PLATELET COUNT 287 X10'3 (140-440); RED BLOOD COUNT 3.77 X10'6 (4.20-5.60); RED CELL DISTRIBUTION WIDTH 17.1 % (11.5-14.5); WHITE BLOOD COUNT 6.1 X10'3 (4.5-11.0)
[2020-04-05 11:45] LABS: ALANINE AMINOTRANSFERASE 30 U/L (12-78); ALBUMIN 2.9 G/DL (3.4-5.0); ALBUMIN/GLOBULIN RATIO 0.7 (1.1-1.5); ALKALINE PHOSPHATASE 236 IU/L (46-116); ANION GAP 3 (8-16); ASPARTATE AMINO TRANSFERASE 29 U/L (10-37); BILIRUBIN,TOTAL 1.8 MG/DL (0.1-1.0); BLOOD UREA NITROGEN 12 MG/DL (7-18); BUN/CREATININE RATIO 19.7 (6.6-38.0); CALCIUM 8.6 MG/DL (8.5-10.1); CHLORIDE 99 MMOL/L (99-107); CREATININE 0.61 MG/DL (0.40-0.90); GLUCOSE 227 MG/DL (70-104); LIPASE 235 U/L (73-393); SODIUM 131 MMOL/L (135-145); TOTAL CARBON DIOXIDE 28.7 MMOL/L (24-32); eGFR > 90 ML/MIN
[2020-04-05] MEDS ORDERED: acetaminophen 1,000mg/100ml IV 100 ML IV STA (12:17)
--- NOTE | 2020-04-05 12:37 | NUR ---
CALLED PHARMACY FOR THE PT ACETAMINOPHEN DRIP ,DEVAUGHN SAID SHE WILL INFORM THE PHAMACISIT.
--- NOTE | 2020-04-05 12:43 | NUR ---
SPOKE TO PHARMACY AILEEN PER HER THEY WILL SEND ACETAMINPHEN DRIP IN FEW MINS.
[2020-04-05 13:18] LABS: CLARITY,URINE SLIGHTLY CLOUDY (Clear); COLOR,URINE YELLOW (Yellow); GLUCOSE, URINE 100 mg/dl (Neg); KETONES,URINE NEGATIVE (Neg); LEUKOCYTE ESTERASE ,URINE SMALL (Neg); NITRITES, URINE NEGATIVE (Neg); OCCULT BLOOD,URINE NEGATIVE (Neg); PH,URINE 6.5 (4.8-8.0); PROTEIN,URINE NEGATIVE (Neg)
[2020-04-05 13:35] LABS: UA COLLECTION TYPE VOIDED
[2020-04-05 13:36] LABS: MUCUS STRANDS MANY /LPF (Neg); SQUAMOUS EPITHELIAL CELL,UR MANY /LPF (FEW); TRANSITIONAL EPI CELLS,URINE FEW /HPF
[2020-04-05 13:37] LABS: BACTERIA,URINE FEW /HPF (Neg); RBC,URINE 0-2 /HPF (0-2)
[2020-04-05 14:53] VITALS: BP 145/74
== END 2020-04-05 14:45 | disposition home or self-care (01) ==
LOC: ER 10:20
DX: C25.9 Malignant neoplasm of pancreas, unspecified (principal); G89.29 Other chronic pain; R10.9 Unspecified abdominal pain; R11.2 Nausea with vomiting, unspecified; J44.9 Chronic obstructive pulmonary disease, unspecified; F41.9 Anxiety disorder, unspecified; Z98.890 Other specified postprocedural states; Z90.49 Acquired absence of other specified parts of digestive tract; Z88.0 Allergy status to penicillin; Z88.1 Allergy status to other antibiotic agents; Z88.7 Allergy status to serum and vaccine; Z79.2 Long term (current) use of antibiotics; Z79.899 Other long term (current) drug therapy
CPT/HCPCS: 36415; 80053; 81001; 83605; 83690; 84145; 85025; 87040; 96361; 96374; 99285; J0131; J7030

== ENCOUNTER 2020-08-12 07:33 | Day surgery (SDC) | payer MEDICARE, MEDICAID ==
[~2020-08-12] VITALS: Ht 157.5 cm; Wt 47.4 kg
[2020-08-12] MEDS ORDERED: ONDA8TAB65 PO (08:48)
[2020-08-12] MEDS ORDERED: albumin 25% 100mL bottle x 1 IV PRN (08:50)
[2020-08-12 09:00] VITALS: BP 104/69
[2020-08-12 10:25] VITALS: BP 101/63
[2020-08-12 14:28] VITALS: BP 113/72
== END 2020-08-12 10:25 | disposition home or self-care (01) ==
LOC: SSTAY O 07:33
PROVIDERS: ATTEND Radiology Vascular & Interventional Radiology
DX: R18.8 Other ascites (principal); J44.9 Chronic obstructive pulmonary disease, unspecified; E03.9 Hypothyroidism, unspecified; G89.29 Other chronic pain; Z90.49 Acquired absence of other specified parts of digestive tract; Z85.07 Personal history of malignant neoplasm of pancreas; Z98.890 Other specified postprocedural states; Z88.0 Allergy status to penicillin; Z88.7 Allergy status to serum and vaccine; Z88.1 Allergy status to other antibiotic agents; Z88.8 Allergy status to other drugs, medicaments and biological substances; Z79.899 Other long term (current) drug therapy; Z80.0 Family history of malignant neoplasm of digestive organs
CPT/HCPCS: 49083